=== PATIENT | female | born 1980 | race African-American/Black ===

== ENCOUNTER 2016-07-05 18:34 | Emergency (ER) | payer MEDICARE, MEDICAID ==
[2015-07-18 10:05] VITALS: BMI 44.2
[~2016-07-05 18:34] MED LIST: ATARAX 25 MG TA25 MG PO; CATAPRES0.1 MG PO; COZAAR50 MG PO; CYMBALTA60 MG PO; HUMALOG 30100 UNITS/ SC; KLONOPIN1 MG PO; LANTUS SOL100 UNIT/1 SQ; NEURONTIN 400400 MG PO; NORCO 5/325 TAB1 TA1 PO; PHENERGAN25 M1 PO; PRILOSEC20 MG PO; SEROQUEL200 MG PO; SOMA350 MG PO; TENORMIN50 MG PO; ZESTRIL40 MG PO; ZOCOR20 MG PO
== END 2016-07-05 19:20 | disposition left against medical advice (07) ==
LOC: D.ER 18:34
DX: I10 Essential (primary) hypertension (principal)

== ENCOUNTER 2016-07-22 11:13 | Emergency (ER) | payer MEDICARE, MEDICAID ==
[2015-07-18 10:05] VITALS: BMI 44.2
[2016-07-22 12:38] LABS: BASOPHILS 0.2 % (0.0-2.0); EOSINOPHILS 1.3 % (0-7); HEMATOCRIT 43.4 % (36.0-48.0); HEMOGLOBIN 14.4 g/dL (12-16); IMMATURE GRANULOCYTES 0.2 % (0-5); LYMPHOCYTES 34.4 % (15-50); MCH 29.3 pg (26.0-34.0); MCHC 33.2 g/dL (31.0-37.0); MCV 88.2 fL (80.0-100.0); MEAN PLATELET VOLUME 10.6 fL (7.4-10.4); MONOCYTES 9.4 % (2-11); NEUTROPHILS 54.5 % (40-80); PLATELET COUNT 311 10x3/uL (130-400); RBC 4.92 10x6/uL (4.00-5.40); WBC 9.3 10x3/uL (4.8-10.8)
[2016-07-22 12:51] LABS: KETONE - SERUM NEGATIVE (NEGATIVE)
[2016-07-22 12:56] LABS: ALBUMIN 3.6 g/dL (3.4-5.0); ALKALINE PHOSPHATASE 94 U/L (46-116); ALT (SGPT) 37 U/L (10-68); BILIRUBIN - TOTAL 0.33 mg/dL (0.2-1.3); CALC OSMOLALITY 285 mosm/kg (275-300); CALCIUM 8.7 mg/dL (8.5-10.1); CARBON DIOXIDE 27.6 mmol/L (21.0-32.0); CHLORIDE - SERUM 103 mmol/L (98-107); CREATININE - SERUM 0.7 mg/dL (0.6-1.3); MAGNESIUM - SERUM 1.2 mg/dL (1.8-2.4); POTASSIUM - SERUM 3.3 mmol/L (3.5-5.1); PROTEIN - SERUM 7.2 g/dL (6.4-8.2); SODIUM 141 mmol/L (136-145); UREA NITROGEN 6 mg/dL (7-18); eGFR NON AFRICAN AMERICAN > 90 mL/min (90-120)
[2016-07-22 13:10] LABS: GLUCOSE 217 mg/dL (74-106)
== END 2016-07-22 14:47 | disposition home or self-care (01) ==
LOC: D.ER 11:13
PROVIDERS: Emergency Medicine
DX: E11.65 Type 2 diabetes mellitus with hyperglycemia (principal); Z79.4 Long term (current) use of insulin; R11.10 Vomiting, unspecified; R10.9 Unspecified abdominal pain; E83.42 Hypomagnesemia; E87.6 Hypokalemia

== ENCOUNTER 2016-07-30 17:05 | Emergency (ER) | payer MEDICARE, MEDICAID ==
[2015-07-18 10:05] VITALS: BMI 44.2
[2016-07-30 18:22] LABS: BASOPHILS 0.2 % (0.0-2.0); HEMATOCRIT 43.4 % (36.0-48.0); HEMOGLOBIN 14.3 g/dL (12-16); IMMATURE GRANULOCYTES 0.3 % (0-5); LYMPHOCYTES 26.8 % (15-50); MCH 28.9 pg (26.0-34.0); MCHC 32.9 g/dL (31.0-37.0); MCV 87.9 fL (80.0-100.0); MEAN PLATELET VOLUME 11.1 fL (7.4-10.4); MONOCYTES 7.7 % (2-11); PLATELET COUNT 254 10x3/uL (130-400); RBC 4.94 10x6/uL (4.00-5.40); RDW 12.8 % (11.5-14.5); WBC 11.2 10x3/uL (4.8-10.8)
[2016-07-30 18:51] LABS: ALBUMIN 3.9 g/dL (3.4-5.0); ANION GAP 15.7 mmol/L (8-16); BILIRUBIN - TOTAL 0.34 mg/dL (0.2-1.3); CALCIUM 9.5 mg/dL (8.5-10.1); CARBON DIOXIDE 28.8 mmol/L (21.0-32.0); POTASSIUM - SERUM 3.5 mmol/L (3.5-5.1); PROTEIN - SERUM 7.9 g/dL (6.4-8.2)
[2016-07-30 19:01] LABS: APPEARANCE CLEAR (CLEAR); BILIRUBIN NEGATIVE (NEGATIVE); COLOR YELLOW (YELLOW); GLUCOSE 1000 mg/dL (NEGATIVE); KETONE NEGATIVE (NEGATIVE); LEUKOCYTE ESTERASE 1+ (NEGATIVE); NITRITE NEGATIVE (NEGATIVE); PROTEIN NEGATIVE (NEGATIVE); UROBILINOGEN NORMAL (NORMAL)
[2016-07-30 19:03] LABS: BACTERIA FEW /hpf (NONE SEEN); EPITHELIAL CELLS 0-5 /hpf (0-5); RED CELLS - URINE 0-5 /hpf (0-5)
== END 2016-07-30 23:40 | disposition home or self-care (01) ==
LOC: D.ER 17:05
PROVIDERS: Emergency Medicine
DX: E11.65 Type 2 diabetes mellitus with hyperglycemia (principal); Z79.4 Long term (current) use of insulin; R11.2 Nausea with vomiting, unspecified; N39.0 Urinary tract infection, site not specified; E87.6 Hypokalemia; E83.42 Hypomagnesemia

== ENCOUNTER 2016-08-16 16:14 | Emergency (ER) | payer MEDICARE, MEDICAID ==
[2015-07-18 10:05] VITALS: BMI 44.2
== END 2016-08-16 21:05 | disposition home or self-care (01) ==
LOC: D.ER 16:14
DX: Z76.0 Encounter for issue of repeat prescription (principal); E87.6 Hypokalemia; E83.42 Hypomagnesemia; E11.9 Type 2 diabetes mellitus without complications; Z79.4 Long term (current) use of insulin

== ENCOUNTER 2016-08-24 09:13 | Emergency (ER) | payer MEDICARE, MEDICAID ==
[2015-07-18 10:05] VITALS: BMI 44.2
== END 2016-08-24 09:25 | disposition left against medical advice (07) ==
LOC: D.ER 09:13
DX: F32.9 Major depressive disorder, single episode, unspecified (principal); E83.42 Hypomagnesemia; E11.9 Type 2 diabetes mellitus without complications; Z79.4 Long term (current) use of insulin

== ENCOUNTER 2016-08-27 09:03 | Observation (INO) | payer MEDICARE, MEDICAID ==
[~2016-08-27] VITALS: Ht 162.6 cm; Wt 98.6 kg
[2016-08-27 09:28] LABS: HCG URINE NEGATIVE (NEGATIVE)
[2016-08-27 09:35] LABS: BASOPHILS 0.1 % (0.0-2.0); EOSINOPHILS 1.2 % (0-7); HEMATOCRIT 47.2 % (36.0-48.0); HEMOGLOBIN 15.4 g/dL (12-16); IMMATURE GRANULOCYTES 0.2 % (0-5); LYMPHOCYTES 31.6 % (15-50); MCH 29.1 pg (26.0-34.0); MCHC 32.6 g/dL (31.0-37.0); MCV 89.2 fL (80.0-100.0); MEAN PLATELET VOLUME 11.3 fL (7.4-10.4); MONOCYTES 8.4 % (2-11); NEUTROPHILS 58.5 % (40-80); RBC 5.29 10x6/uL (4.00-5.40); RDW 12.6 % (11.5-14.5); WBC 8.4 10x3/uL (4.8-10.8)
[2016-08-27 09:36] LABS: PLATELET COUNT 315 10x3/uL (130-400)
[2016-08-27 09:42] LABS: APPEARANCE CLEAR (CLEAR); BILIRUBIN NEGATIVE (NEGATIVE); COLOR STRAW (YELLOW); GLUCOSE 1000 mg/dL (NEGATIVE); KETONE NEGATIVE (NEGATIVE); LEUKOCYTE ESTERASE NEGATIVE (NEGATIVE); NITRITE NEGATIVE (NEGATIVE); PROTEIN NEGATIVE (NEGATIVE); SPECIFIC GRAVITY 1.005 (1.005-1.020); UROBILINOGEN NORMAL (NORMAL)
[2016-08-27 09:48] LABS: BACTERIA FEW /hpf (NONE SEEN); EPITHELIAL CELLS 0-5 /hpf (0-5); RED CELLS - URINE 0-5 /hpf (0-5); WHITE CELLS - URINE 0-5 /hpf (0-5)
[2016-08-27 09:49] LABS: ALBUMIN 4.3 g/dL (3.4-5.0); BILIRUBIN - TOTAL 0.4 mg/dL (0.2-1.3); CALCIUM 9.5 mg/dL (8.5-10.1); CARBON DIOXIDE 22.7 mmol/L (21.0-32.0); CREATININE - SERUM 1.3 mg/dL (0.6-1.3); POTASSIUM - SERUM 3.7 mmol/L (3.5-5.1)
--- NOTE | 2016-08-27 13:00 | NUR ---
PATIENT RECEIVED TO FLOOR FROM ER. ALERT IN BED. NO SIGNS OF DISTRESS NOTED. ORIENTED TO ROOM. SIDE RAILS UP X2. BED IN LOW POSITION. CALL LIGHT IN REACH. DENIES NEEDS.
[2016-08-27] MEDS ORDERED: HYDROCODONE-APA1 TAB PO (13:03)
[2016-08-27] MEDS ORDERED: LANTUS SOL100 UNIT/1 SC (13:04)
--- NOTE | 2016-08-27 13:32 | NUR ---
ACCU CHECK 499. INSULIN PER SLIDING SCALE. IVF INITIATED PER ORDERS. DENIES NEEDS. SIDE RAILS UP X2. BED IN LOW POSITION. CALL LIGHT IN REACH.
--- NOTE | 2016-08-27 14:04 | NUR ---
SCHEDULED MEDICATION ADMINISTERED WELL PRN NORCO FOR PAIN 10/10 AND ZOFRAN FOR NAUSEA. NO FURTHER NEEDS VOICED. SIDE RAILS UP X2. BED IN LOW POSITION. CALL LIGHT IN REACH.
[2016-08-27 15:22] VITALS: BP 138/89; Ht 162.6 cm; Wt 98.6 kg
[2016-08-27 15:57] VITALS: BP 142/88
--- NOTE | 2016-08-27 16:50 | NUR ---
ACCU CHECK 331. INSULIN PER SLIDING SCALE. DENIES FURTHER NEEDS. SIDE RAILS UP X2. BED IN LOW POSITION. CALL LIGHT IN REACH.
--- NOTE | 2016-08-27 18:40 | NUR ---
PATIENT ALERT IN BED. TELEMETRY PLACED ON PATIENT PER ORDERS. ARRT TECHNOLOGIST REPORTS [address] SCDS ON PATIENT ORDERED, BUT SCD MACHINE THAT IS ATTACHED TO BED DOES NOT WORK. WILL NOTIFY VESSEL CREW MEMBER AND REQUEST NEW MACHINE. NORCO ADMINISTERED PER PRN ORDER FOR GENERALIZED PAIN 03/10. NO FURTHER NEEDS VOICED. SIDE RAILS UP X2. BED IN LOW POSITION. CALL LIGHT IN REACH.
[2016-08-27 19:00] VITALS: BP 140/93
[2016-08-28 01:00] VITALS: BP 114/76
[2016-08-28 04:00] VITALS: BP 154/84
--- NOTE | 2016-08-28 05:46 | NUR ---
PATIENT RESTING IN BED ON HER PHONE. PATIENT DENIES NEEDS AT THIS TIME. BED IN LOWEST POSITION AND CALL LIGHT WITHIN REACH.
[2016-08-28 05:53] LABS: BASOPHILS 0.2 % (0.0-2.0); EOSINOPHILS 2.5 % (0-7); HEMATOCRIT 43.3 % (36.0-48.0); HEMOGLOBIN 13.9 g/dL (12-16); IMMATURE GRANULOCYTES 0.4 % (0-5); LYMPHOCYTES 36.5 % (15-50); MCH 28.7 pg (26.0-34.0); MCHC 32.1 g/dL (31.0-37.0); MCV 89.3 fL (80.0-100.0); MEAN PLATELET VOLUME 10.9 fL (7.4-10.4); MONOCYTES 10.8 % (2-11); NEUTROPHILS 49.6 % (40-80); PLATELET COUNT 261 10x3/uL (130-400); RBC 4.85 10x6/uL (4.00-5.40); RDW 12.5 % (11.5-14.5); WBC 8.1 10x3/uL (4.8-10.8)
[2016-08-28 06:30] LABS: CALCIUM 8.4 mg/dL (8.5-10.1); CHLORIDE - SERUM 102 mmol/L (98-107); POTASSIUM - SERUM 3.7 mmol/L (3.5-5.1); SODIUM 141 mmol/L (136-145)
[2016-08-28 06:31] LABS: CALC OSMOLALITY 283 mosm/kg (275-300); CARBON DIOXIDE 28.7 mmol/L (21.0-32.0); CREATININE - SERUM 0.8 mg/dL (0.6-1.3); GLUCOSE 177 mg/dL (74-106); UREA NITROGEN 11 mg/dL (7-18); eGFR NON AFRICAN AMERICAN 85 mL/min (90-120)
--- NOTE | 2016-08-28 07:15 | NUR ---
PATEINT RECEIVED ALERT IN HIGH MCDONALD POSITION WATCHING TV. RESPIRATIONS EVEN AND UNLABORED. SIDE RAILS UP X2. BED IN LOW POSITION. CALL LIGHT IN REACH.
--- NOTE | 2016-08-28 08:02 | NUR ---
PATIENT IN HIGH MCDONALD POSITION. NO SIGNS OF DISTRESS NOTED. SCHEDULED MEDICATION ADMINISTERED. PATIENT CHECKED GLUCOSE ON PERSONAL GLUCOMETER, READING WAS 78. PROVIDED WITH JUICE AND CELE CRACKERS. DENIES FURTHER NEEDS. CALL LIGHT IN REACH.
[2016-08-28 08:13] VITALS: BP 129/75
[2016-08-28] MEDS ORDERED: KLONOPIN1 MG PO (10:57)
[2016-08-28 11:32] VITALS: BP 149/91
--- NOTE | 2016-08-28 11:34 | NUR ---
ACCU CHECK 193. PATIENT NOT WANTING INSULIN AT THIS TIME BECAUSE SHE IS AFRAID IT WILL DROP HER TOO LOW.
--- NOTE | 2016-08-28 12:00 | NUR ---
IV TO RIGHT FOREARM D/C WITH CATH TIP INTACT. SITE COVERED WITH GAUZE AND BANDAID.
--- NOTE | 2016-08-28 12:34 | NUR ---
Patient Name: SUSY HANNON Admission Status: Elective Accout number: [id number] Admission Date: 08-27-2016 : 1980 Admission Diagnosis: Attending: GEMINI Current LOS: 1 Anticipated DC Date: Planned Disposition: Home Primary Insurance: [employer] ADV Discharge Planning Comments: CM MET WITH PATIENT REGARDING D/C NEEDS AND PLANS. PATIENT STATED SHE LIVES WITH HER DAUGHTER (13) AND THEY HAVE 1 STEP W/O RAILS TO ENTER HOME AND NO STAIRS INSIDE. PATIENT USES [facility] [address]. PATIENT HAS A WALKER, AND GLUCOMETER AT HOME. PATIENT STATED SHE CHECKS HER SUGAR AT LEAST 6 X DAY. PATIENT HAS A FRIEND (LAVELL FLORES) THAT HELPS HER AT HOME. PATIENT STATED SHE IS GOING TO FIND A PCP WHEN DISCHARGED. PATIENT IS DISCHARGING TODAY AND A FRIEND OR A FAMILY MEMBER WILL PICK HER UP AT DISCHARGE. [facility] IS DELIVERING A SHOWER CHAIR TO HER HOME TODAY AFTER DISCHARGE. PCP NONE [facility] [address]- [phone] LAVELL MARK (FRIEND AND CAREGIVER) [phone] Mixing Technician: Emmanuelle Lewis Is the patient Alert and Oriented? Yes 0 * How many steps to enter\exit or inside your home? 1 0 * PCP none 0 * Pharmacy [facility] [address] [facility] * Preadmission Environment Home with Family 0 * ADLs Independent 0 * Equipment Glucometer Walker 0 * List name and contact numbers for known caregivers / representatives who currently or will assist patient after discharge: LAVELL FLORES [phone] 0 * Community resources currently utilized Other 0 * Please name any agencies selected above. HAS A CAREGIVER (LAVELL) 0 * Additional services required to return to the preadmission environment? Yes 0 * Can the patient safely return to the preadmission environment? Yes 0 * Has this patient been hospitalized within the prior 30 days at any hospital? No 0 Grand Total: 0
--- NOTE | 2016-08-28 12:36 | NUR ---
D/C TEACHING PROVIDED TO PATIENT. QUESTIONS ANSWERED. STATES UNDERSTANDING. LANTUS PEN SENT HOME WITH PATIENT PER ORDERS.
--- NOTE | 2016-08-28 13:00 | NUR ---
PATIENT D/C HOME WITH FAMILY. TRANSFERRE DOWNSTAIRS VIA WHEELCHAIR
== END 2016-08-28 13:36 | disposition home or self-care (01) ==
LOC: D.ER 09:03 → D.MS 11:04 → OBSVTIME 13:00 → D.MS 08-28 13:36
PROVIDERS: Emergency Medicine; ADMIT Emergency Medicine
DX: E11.65 Type 2 diabetes mellitus with hyperglycemia (principal); F31.9 Bipolar disorder, unspecified; M79.9 Soft tissue disorder, unspecified; I10 Essential (primary) hypertension; R11.2 Nausea with vomiting, unspecified

== ENCOUNTER 2016-09-02 08:35 | Emergency (ER) | payer MEDICARE, MEDICAID ==
[2016-08-27 15:22] VITALS: BMI 37.3
[~2016-09-02 08:35] MED LIST changes: +HYDROCODONE-APA1 TAB PO; +LANTUS SOL100 UNIT/1 SC
[2016-09-02 08:59] LABS: BASOPHILS 0.1 % (0.0-2.0); EOSINOPHILS 1.3 % (0-7); HEMATOCRIT 43.2 % (36.0-48.0); HEMOGLOBIN 13.9 g/dL (12-16); IMMATURE GRANULOCYTES 0.4 % (0-5); LYMPHOCYTES 20.8 % (15-50); MCHC 32.2 g/dL (31.0-37.0); MEAN PLATELET VOLUME 10.9 fL (7.4-10.4); NEUTROPHILS 66.4 % (40-80); PLATELET COUNT 280 10x3/uL (130-400); RDW 12.6 % (11.5-14.5); WBC 11.9 10x3/uL (4.8-10.8)
[2016-09-02 09:15] LABS: ALBUMIN 3.7 g/dL (3.4-5.0); ALKALINE PHOSPHATASE 143 U/L (46-116); ALT (SGPT) 32 U/L (10-68); BILIRUBIN - TOTAL 0.42 mg/dL (0.2-1.3); CALCIUM 8.4 mg/dL (8.5-10.1); CARBON DIOXIDE 25.9 mmol/L (21.0-32.0); CHLORIDE - SERUM 96 mmol/L (98-107); CREATININE - SERUM 0.8 mg/dL (0.6-1.3); POTASSIUM - SERUM 3.9 mmol/L (3.5-5.1); PROTEIN - SERUM 7.3 g/dL (6.4-8.2); SODIUM 133 mmol/L (136-145); UREA NITROGEN 8 mg/dL (7-18); eGFR NON AFRICAN AMERICAN 85 mL/min (90-120)
[2016-09-02 09:17] LABS: CALC OSMOLALITY 291 mosm/kg (275-300); GLUCOSE 594 mg/dL (74-106)
[2016-09-02 09:21] LABS: KETONE - SERUM NEGATIVE (NEGATIVE)
[2016-09-02 09:24] LABS: MAGNESIUM - SERUM 1.5 mg/dL (1.8-2.4)
== END 2016-09-02 14:26 | disposition home or self-care (01) ==
LOC: D.ER 08:35
PROVIDERS: Emergency Medicine
DX: R11.10 Vomiting, unspecified (principal); R19.7 Diarrhea, unspecified; R10.9 Unspecified abdominal pain; G62.9 Polyneuropathy, unspecified; E11.9 Type 2 diabetes mellitus without complications; Z79.4 Long term (current) use of insulin

== ENCOUNTER 2016-09-07 08:45 | Emergency (ER) | payer MEDICARE, MEDICAID ==
[2016-08-27 15:22] VITALS: BMI 37.3
[2016-09-07 09:50] LABS: BASOPHILS 0.1 % (0.0-2.0); HEMATOCRIT 43.9 % (36.0-48.0); HEMOGLOBIN 14.5 g/dL (12-16); IMMATURE GRANULOCYTES 0.3 % (0-5); LYMPHOCYTES 29.3 % (15-50); MCH 28.5 pg (26.0-34.0); MCV 86.4 fL (80.0-100.0); MEAN PLATELET VOLUME 10.8 fL (7.4-10.4); MONOCYTES 9.7 % (2-11); NEUTROPHILS 58.6 % (40-80); RBC 5.08 10x6/uL (4.00-5.40); RDW 12.8 % (11.5-14.5); WBC 8.8 10x3/uL (4.8-10.8)
[2016-09-07 09:51] LABS: PLATELET COUNT 383 10x3/uL (130-400)
[2016-09-07 10:09] LABS: ALBUMIN 3.6 g/dL (3.4-5.0); ALKALINE PHOSPHATASE 122 U/L (46-116); ALT (SGPT) 22 U/L (10-68); BILIRUBIN - TOTAL 0.36 mg/dL (0.2-1.3); CALC OSMOLALITY 290 mosm/kg (275-300); CALCIUM 9.1 mg/dL (8.5-10.1); CARBON DIOXIDE 23.7 mmol/L (21.0-32.0); CHLORIDE - SERUM 100 mmol/L (98-107); CREATININE - SERUM 0.8 mg/dL (0.6-1.3); POTASSIUM - SERUM 3.3 mmol/L (3.5-5.1); PROTEIN - SERUM 7.5 g/dL (6.4-8.2); SODIUM 135 mmol/L (136-145); UREA NITROGEN 9 mg/dL (7-18); eGFR NON AFRICAN AMERICAN 85 mL/min (90-120)
[2016-09-07 10:13] LABS: GLUCOSE 498 mg/dL (74-106)
[2016-09-07 13:30] LABS: HCG URINE NEGATIVE (NEGATIVE)
[2016-09-07 13:35] LABS: APPEARANCE CLEAR (CLEAR); BACTERIA FEW /hpf (NONE SEEN); BILIRUBIN NEGATIVE (NEGATIVE); COLOR YELLOW (YELLOW); EPITHELIAL CELLS 0-5 /hpf (0-5); GLUCOSE 1000 mg/dL (NEGATIVE); KETONE NEGATIVE (NEGATIVE); LEUKOCYTE ESTERASE TRACE (NEGATIVE); NITRITE NEGATIVE (NEGATIVE); PROTEIN NEGATIVE (NEGATIVE); RED CELLS - URINE OCC /hpf (0-5); UROBILINOGEN NORMAL (NORMAL); WHITE CELLS - URINE 0-5 /hpf (0-5)
[2016-09-07 13:43] LABS: KETONE - SERUM SMALL mg/dL (NEGATIVE)
[2016-09-07 13:45] LABS: LIPASE 183 U/L (73-393)
== END 2016-09-07 14:33 | disposition home or self-care (01) ==
LOC: D.ER 08:45
PROVIDERS: Emergency Medicine
DX: E11.65 Type 2 diabetes mellitus with hyperglycemia (principal); Z79.4 Long term (current) use of insulin; R11.10 Vomiting, unspecified; Z91.14 Patient's other noncompliance with medication regimen

== ENCOUNTER 2016-09-15 00:08 | Emergency (ER) | payer MEDICARE, MEDICAID ==
[2016-08-27 15:22] VITALS: BMI 37.3
[2016-09-15 00:54] LABS: APPEARANCE CLEAR (CLEAR); BILIRUBIN NEGATIVE (NEGATIVE); COLOR YELLOW (YELLOW); GLUCOSE NEGATIVE (NEGATIVE); KETONE NEGATIVE (NEGATIVE); LEUKOCYTE ESTERASE NEGATIVE (NEGATIVE); NITRITE NEGATIVE (NEGATIVE); PROTEIN NEGATIVE (NEGATIVE); SPECIFIC GRAVITY 1.015 (1.005-1.020); UROBILINOGEN NORMAL (NORMAL)
[2016-09-15 01:10] LABS: HCG URINE NEGATIVE (NEGATIVE)
[2016-09-15 01:31] LABS: BASOPHILS 0.1 % (0.0-2.0); EOSINOPHILS 1.9 % (0-7); HEMOGLOBIN 13.6 g/dL (12-16); IMMATURE GRANULOCYTES 0.3 % (0-5); LYMPHOCYTES 27.9 % (15-50); MCH 28.3 pg (26.0-34.0); MCHC 32.4 g/dL (31.0-37.0); MCV 87.3 fL (80.0-100.0); MEAN PLATELET VOLUME 10.3 fL (7.4-10.4); MONOCYTES 9.8 % (2-11); PLATELET COUNT 399 10x3/uL (130-400); RBC 4.81 10x6/uL (4.00-5.40); RDW 12.7 % (11.5-14.5)
[2016-09-15 01:51] LABS: ALBUMIN 3.5 g/dL (3.4-5.0); ALKALINE PHOSPHATASE 106 U/L (46-116); ALT (SGPT) 28 U/L (10-68); AMYLASE - SERUM 93 U/L (25-115); BILIRUBIN - TOTAL 0.53 mg/dL (0.2-1.3); CALC OSMOLALITY 282 mosm/kg (275-300); CALCIUM 8.1 mg/dL (8.5-10.1); CARBON DIOXIDE 28.4 mmol/L (21.0-32.0); CHLORIDE - SERUM 106 mmol/L (98-107); CREATININE - SERUM 0.6 mg/dL (0.6-1.3); GLUCOSE 155 mg/dL (74-106); LIPASE 120 U/L (73-393); POTASSIUM - SERUM 3.3 mmol/L (3.5-5.1); PROTEIN - SERUM 7.1 g/dL (6.4-8.2); SODIUM 142 mmol/L (136-145); UREA NITROGEN 4 mg/dL (7-18); eGFR NON AFRICAN AMERICAN > 90 mL/min (90-120)
== END 2016-09-15 04:28 | disposition home or self-care (01) ==
LOC: D.ER 00:08
PROVIDERS: Surgery
DX: K52.9 Noninfective gastroenteritis and colitis, unspecified (principal); K62.89 Other specified diseases of anus and rectum; E11.9 Type 2 diabetes mellitus without complications; Z79.4 Long term (current) use of insulin

== ENCOUNTER 2016-09-15 22:40 | Emergency (ER) | payer MEDICARE, MEDICAID ==
[2016-08-27 15:22] VITALS: BMI 37.3
[2016-09-16 00:54] LABS: BASOPHILS 0.1 % (0.0-2.0); EOSINOPHILS 1.7 % (0-7); HEMATOCRIT 44.2 % (36.0-48.0); HEMOGLOBIN 14.2 g/dL (12-16); IMMATURE GRANULOCYTES 0.4 % (0-5); LYMPHOCYTES 27.8 % (15-50); MCH 28.6 pg (26.0-34.0); MCHC 32.1 g/dL (31.0-37.0); MCV 88.9 fL (80.0-100.0); MEAN PLATELET VOLUME 10.2 fL (7.4-10.4); MONOCYTES 11.3 % (2-11); NEUTROPHILS 58.7 % (40-80); PLATELET COUNT 407 10x3/uL (130-400); RBC 4.97 10x6/uL (4.00-5.40); RDW 12.8 % (11.5-14.5)
[2016-09-16 01:10] LABS: ALBUMIN 3.5 g/dL (3.4-5.0); ALKALINE PHOSPHATASE 106 U/L (46-116); ALT (SGPT) 29 U/L (10-68); BILIRUBIN - TOTAL 0.53 mg/dL (0.2-1.3); CALCIUM 8.3 mg/dL (8.5-10.1); CARBON DIOXIDE 30.4 mmol/L (21.0-32.0); CHLORIDE - SERUM 107 mmol/L (98-107); CREATININE - SERUM 0.6 mg/dL (0.6-1.3); POTASSIUM - SERUM 3.1 mmol/L (3.5-5.1); PROTEIN - SERUM 7.2 g/dL (6.4-8.2); SODIUM 145 mmol/L (136-145); eGFR NON AFRICAN AMERICAN > 90 mL/min (90-120)
[2016-09-16 01:19] LABS: CALC OSMOLALITY 283 mosm/kg (275-300); GLUCOSE 87 mg/dL (74-106); UREA NITROGEN 2 mg/dL (7-18)
== END 2016-09-16 05:45 | disposition home or self-care (01) ==
LOC: D.ER 22:40
PROVIDERS: Surgery
DX: R10.9 Unspecified abdominal pain (principal); K52.9 Noninfective gastroenteritis and colitis, unspecified; K62.89 Other specified diseases of anus and rectum; E11.65 Type 2 diabetes mellitus with hyperglycemia; Z79.4 Long term (current) use of insulin

== ENCOUNTER 2016-09-20 17:13 | Emergency (ER) | payer MEDICARE, MEDICAID ==
[2016-08-27 15:22] VITALS: BMI 37.3
[2016-09-20 17:57] LABS: BASOPHILS 0.5 % (0.0-2.0); EOSINOPHILS 2.1 % (0-7); HEMATOCRIT 38.9 % (36.0-48.0); HEMOGLOBIN 12.2 g/dL (12-16); IMMATURE GRANULOCYTES 0.5 % (0-5); LYMPHOCYTES 29.2 % (15-50); MCH 28.1 pg (26.0-34.0); MCHC 31.4 g/dL (31.0-37.0); MCV 89.6 fL (80.0-100.0); MEAN PLATELET VOLUME 10.4 fL (7.4-10.4); MONOCYTES 9.9 % (2-11); NEUTROPHILS 57.8 % (40-80); PLATELET COUNT 345 10x3/uL (130-400); RBC 4.34 10x6/uL (4.00-5.40); RDW 12.6 % (11.5-14.5); WBC 10.9 10x3/uL (4.8-10.8)
[2016-09-20 18:21] LABS: ALBUMIN 3.5 g/dL (3.4-5.0); ALKALINE PHOSPHATASE 109 U/L (46-116); ALT (SGPT) 27 U/L (10-68); BILIRUBIN - TOTAL 0.33 mg/dL (0.2-1.3); CALCIUM 8.4 mg/dL (8.5-10.1); CARBON DIOXIDE 29.6 mmol/L (21.0-32.0); CHLORIDE - SERUM 100 mmol/L (98-107); CREATININE - SERUM 0.8 mg/dL (0.6-1.3); POTASSIUM - SERUM 3.6 mmol/L (3.5-5.1); PROTEIN - SERUM 6.3 g/dL (6.4-8.2); SODIUM 138 mmol/L (136-145); UREA NITROGEN 5 mg/dL (7-18); eGFR NON AFRICAN AMERICAN 85 mL/min (90-120)
[2016-09-20 18:25] LABS: CALC OSMOLALITY 297 mosm/kg (275-300); GLUCOSE 544 mg/dL (74-106)
[2016-09-20 19:57] LABS: KETONE - SERUM NEGATIVE (NEGATIVE)
[2016-09-20 20:06] LABS: HEMOGLOBIN A1C 10.4 % (4.8-6.0)
[2016-09-20 20:17] LABS: AMYLASE - SERUM 85 U/L (25-115); LIPASE 133 U/L (73-393); PRO BNP 480 pg/mL (0-125); THYROID STIMULATING HORMONE 3.37 uIU/mL (0.36-3.74)
[2016-09-20 20:20] LABS: UDS - AMPHET NEGATIVE QUAL (NEGATIVE); UDS - BARB NEGATIVE QUAL (NEGATIVE); UDS - BENZO NEGATIVE QUAL (NEGATIVE); UDS - COCAINE NEGATIVE QUAL (NEGATIVE); UDS - METH NEGATIVE QUAL (NEGATIVE); UDS - OPIATE NEGATIVE QUAL (NEGATIVE); UDS - PCP NEGATIVE QUAL (NEGATIVE); UDS - THC NEGATIVE QUAL (NEGATIVE)
[2016-09-20 20:57] LABS: APPEARANCE HAZY (CLEAR); BACTERIA FEW /hpf (NONE SEEN); BILIRUBIN NEGATIVE (NEGATIVE); COLOR YELLOW (YELLOW); EPITHELIAL CELLS 0-5 /hpf (0-5); GLUCOSE 1000 mg/dL (NEGATIVE); KETONE NEGATIVE (NEGATIVE); LEUKOCYTE ESTERASE TRACE (NEGATIVE); NITRITE NEGATIVE (NEGATIVE); PROTEIN NEGATIVE (NEGATIVE); UROBILINOGEN NORMAL (NORMAL); WHITE CELLS - URINE 0-5 /hpf (0-5)
== END 2016-09-20 21:37 | disposition home or self-care (01) ==
LOC: D.ER 17:13
PROVIDERS: Emergency Medicine; Family Medicine
DX: R73.9 Hyperglycemia, unspecified (principal)

== ENCOUNTER 2016-10-21 11:20 | Emergency (ER) | payer MEDICARE, MEDICAID ==
[2016-08-27 15:22] VITALS: BMI 37.3
== END 2016-10-21 12:20 | disposition home or self-care (01) ==
LOC: D.ER 11:20
DX: F41.9 Anxiety disorder, unspecified (principal); F41.0 Panic disorder [episodic paroxysmal anxiety]; G62.9 Polyneuropathy, unspecified; E11.9 Type 2 diabetes mellitus without complications; I10 Essential (primary) hypertension

== ENCOUNTER 2016-12-16 19:23 | Emergency (ER) | payer MEDICARE, MEDICAID ==
[2016-08-27 15:22] VITALS: BMI 37.3
[2016-12-16 20:27] LABS: BASOPHILS 0.2 % (0-2); EOSINOPHILS 0.8 % (0-7); HEMATOCRIT 45.1 % (36.0-48.0); HEMOGLOBIN 14.8 g/dL (12-16); IMMATURE GRANULOCYTES 0.5 % (0-5); LYMPHOCYTES 26.7 % (15-50); MCH 28.9 pg (26.0-34.0); MCHC 32.8 g/dL (31.0-37.0); MCV 88.1 fL (80.0-100.0); MEAN PLATELET VOLUME 10.6 fL (7.4-10.4); NEUTROPHILS 59.8 % (40-80); PLATELET COUNT 394 10x3/uL (130-400); RBC 5.12 10x6/uL (4.00-5.40); RDW 12.8 % (11.5-14.5)
[2016-12-16 20:42] LABS: ALBUMIN 4.1 g/dL (3.4-5.0); ALKALINE PHOSPHATASE 133 U/L (46-116); ALT (SGPT) 23 U/L (10-68); CALC OSMOLALITY 294 mosm/kg (275-300); CALCIUM 9.5 mg/dL (8.5-10.1); CARBON DIOXIDE 25.5 mmol/L (21.0-32.0); CHLORIDE - SERUM 101 mmol/L (98-107); POTASSIUM - SERUM 3.5 mmol/L (3.5-5.1); PROTEIN - SERUM 7.8 g/dL (6.4-8.2); SODIUM 138 mmol/L (136-145); UREA NITROGEN 12 mg/dL (7-18); eGFR NON AFRICAN AMERICAN 66 mL/min (90-120)
[2016-12-16 20:46] LABS: GLUCOSE 443 mg/dL (74-106); KETONE - SERUM NEGATIVE (NEGATIVE)
[2016-12-16 21:37] LABS: APPEARANCE CLEAR (CLEAR); BILIRUBIN NEGATIVE (NEGATIVE); COLOR YELLOW (YELLOW); GLUCOSE 1000 mg/dL (NEGATIVE); KETONE NEGATIVE (NEGATIVE); LEUKOCYTE ESTERASE NEGATIVE (NEGATIVE); NITRITE NEGATIVE (NEGATIVE); PROTEIN NEGATIVE (NEGATIVE); SPECIFIC GRAVITY 1.015 (1.005-1.020); UROBILINOGEN NORMAL (NORMAL)
[2016-12-16 21:45] LABS: UDS - AMPHET NEGATIVE QUAL (NEGATIVE); UDS - BARB NEGATIVE QUAL (NEGATIVE); UDS - BENZO NEGATIVE QUAL (NEGATIVE); UDS - COCAINE NEGATIVE QUAL (NEGATIVE); UDS - METH NEGATIVE QUAL (NEGATIVE); UDS - OPIATE NEGATIVE QUAL (NEGATIVE); UDS - PCP NEGATIVE QUAL (NEGATIVE); UDS - THC NEGATIVE QUAL (NEGATIVE)
== END 2016-12-16 22:25 | disposition home or self-care (01) ==
LOC: D.ER 19:23
PROVIDERS: Family Medicine; Nurse Practitioner Family
DX: E11.65 Type 2 diabetes mellitus with hyperglycemia (principal); Z91.14 Patient's other noncompliance with medication regimen; G62.9 Polyneuropathy, unspecified; I10 Essential (primary) hypertension

== ENCOUNTER 2016-12-25 17:22 | Emergency (ER) | payer MEDICARE, MEDICAID ==
[2016-08-27 15:22] VITALS: BMI 37.3
== END 2016-12-25 17:59 | disposition left against medical advice (07) ==
LOC: D.ER 17:22
DX: E11.65 Type 2 diabetes mellitus with hyperglycemia (principal)

== ENCOUNTER 2017-01-07 15:23 | Emergency (ER) | payer MEDICARE, MEDICAID ==
[2016-08-27 15:22] VITALS: BMI 37.3
[2017-01-07 16:51] LABS: BASOPHILS 0.2 % (0-2); EOSINOPHILS 1.9 % (0-7); HEMATOCRIT 41.1 % (36.0-48.0); HEMOGLOBIN 13.2 g/dL (12-16); IMMATURE GRANULOCYTES 0.6 % (0-5); LYMPHOCYTES 33.5 % (15-50); MCH 29.2 pg (26.0-34.0); MCHC 32.1 g/dL (31.0-37.0); MCV 90.9 fL (80.0-100.0); MEAN PLATELET VOLUME 10.6 fL (7.4-10.4); MONOCYTES 13.6 % (2-11); NEUTROPHILS 50.2 % (40-80); PLATELET COUNT 348 10x3/uL (130-400); RBC 4.52 10x6/uL (4.00-5.40); RDW 13.1 % (11.5-14.5); WBC 9.9 10x3/uL (4.8-10.8)
== END 2017-01-07 18:10 | disposition home or self-care (01) ==
LOC: D.ER 15:23
PROVIDERS: Emergency Medicine
DX: K59.00 Constipation, unspecified (principal); E11.9 Type 2 diabetes mellitus without complications; I10 Essential (primary) hypertension

== ENCOUNTER 2017-01-13 10:03 | Emergency (ER) | payer MEDICARE, MEDICAID ==
[2016-08-27 15:22] VITALS: BMI 37.3
== END 2017-01-13 13:02 | disposition home or self-care (01) ==
LOC: D.ER 10:03
DX: M25.50 Pain in unspecified joint (principal); G62.9 Polyneuropathy, unspecified; I10 Essential (primary) hypertension; E11.9 Type 2 diabetes mellitus without complications

== ENCOUNTER 2017-02-02 18:30 | Emergency (ER) | payer MEDICARE, MEDICAID ==
[2016-08-27 15:22] VITALS: BMI 37.3
== END 2017-02-02 19:59 | disposition home or self-care (01) ==
LOC: D.ER 18:30
DX: F19.239 Other psychoactive substance dependence with withdrawal, unspecified (principal); F41.9 Anxiety disorder, unspecified; R11.2 Nausea with vomiting, unspecified; R19.7 Diarrhea, unspecified; E11.9 Type 2 diabetes mellitus without complications; I10 Essential (primary) hypertension

== ENCOUNTER 2017-04-09 10:38 | Emergency (ER) | payer MEDICARE, MEDICAID ==
[2016-08-27 15:22] VITALS: BMI 37.3
[2017-04-09 11:23] LABS: APPEARANCE CLEAR (CLEAR); BILIRUBIN NEGATIVE (NEGATIVE); COLOR YELLOW (YELLOW); GLUCOSE 1000 mg/dL (NEGATIVE); KETONE NEGATIVE (NEGATIVE); NITRITE NEGATIVE (NEGATIVE); PROTEIN TRACE mg/dL (NEGATIVE); SPECIFIC GRAVITY 1.015 (1.005-1.020); UROBILINOGEN NORMAL (NORMAL)
[2017-04-09 11:24] LABS: BACTERIA FEW /hpf (NONE SEEN); RED CELLS - URINE 0-5 /hpf (0-5); YEAST <1+ /hpf (NONE SEEN)
[2017-04-09 11:38] LABS: KETONE - SERUM NEGATIVE (NEGATIVE)
[2017-04-09 11:51] LABS: ALBUMIN 3.8 g/dL (3.4-5.0); ALKALINE PHOSPHATASE 129 U/L (46-116); ALT (SGPT) 21 U/L (10-68); BILIRUBIN - TOTAL 0.51 mg/dL (0.2-1.3); CALC OSMOLALITY 286 mosm/kg (275-300); CALCIUM 9.5 mg/dL (8.5-10.1); CARBON DIOXIDE 27.6 mmol/L (21.0-32.0); CHLORIDE - SERUM 100 mmol/L (98-107); CREATININE - SERUM 0.8 mg/dL (0.6-1.3); POTASSIUM - SERUM 3.8 mmol/L (3.5-5.1); PROTEIN - SERUM 7.8 g/dL (6.4-8.2); SODIUM 138 mmol/L (136-145); UREA NITROGEN 13 mg/dL (7-18); eGFR NON AFRICAN AMERICAN 85 mL/min (90-120)
[2017-04-09 12:03] LABS: GLUCOSE 291 mg/dL (74-106)
== END 2017-04-09 15:40 | disposition home or self-care (01) ==
LOC: D.ER 10:38
PROVIDERS: Nurse Practitioner Family
DX: E11.65 Type 2 diabetes mellitus with hyperglycemia (principal); E66.9 Obesity, unspecified; Z91.19 Patient's noncompliance with other medical treatment and regimen; I10 Essential (primary) hypertension

== ENCOUNTER 2017-05-15 15:35 | Emergency (ER) | payer MEDICARE, MEDICAID ==
[2016-08-27 15:22] VITALS: BMI 37.3
== END 2017-05-15 16:43 | disposition home or self-care (01) ==
LOC: D.ER 15:35
DX: F41.9 Anxiety disorder, unspecified (principal); I10 Essential (primary) hypertension; E11.9 Type 2 diabetes mellitus without complications

== ENCOUNTER 2017-06-11 16:45 | Emergency (ER) | payer MEDICARE, MEDICAID ==
[2016-08-27 15:22] VITALS: BMI 37.3
[2017-06-11 17:15] LABS: BASOPHILS 0.2 % (0-2); EOSINOPHILS 1.3 % (0-7); HEMATOCRIT 41.8 % (36.0-48.0); HEMOGLOBIN 13.2 g/dL (12-16); IMMATURE GRANULOCYTES 0.3 % (0-5); LYMPHOCYTES 35.3 % (15-50); MCH 27.7 pg (26.0-34.0); MCHC 31.6 g/dL (31.0-37.0); MCV 87.6 fL (80.0-100.0); MONOCYTES 11.9 % (2-11); RBC 4.77 10x6/uL (4.00-5.40); RDW 12.6 % (11.5-14.5); WBC 6.2 10x3/uL (4.8-10.8)
[2017-06-11 17:16] LABS: PLATELET COUNT 275 10x3/uL (130-400)
[2017-06-11 17:23] LABS: KETONE - SERUM SMALL mg/dL (NEGATIVE)
[2017-06-11 17:33] LABS: ALBUMIN 3.3 g/dL (3.4-5.0); ALKALINE PHOSPHATASE 122 U/L (46-116); ALT (SGPT) 21 U/L (10-68); CARBON DIOXIDE 23.2 mmol/L (21.0-32.0); CHLORIDE - SERUM 92 mmol/L (98-107); CREATININE - SERUM 1.2 mg/dL (0.6-1.3); MAGNESIUM - SERUM 1.9 mg/dL (1.8-2.4); POTASSIUM - SERUM 4.1 mmol/L (3.5-5.1); PROTEIN - SERUM 6.6 g/dL (6.4-8.2); SODIUM 127 mmol/L (136-145); UREA NITROGEN 13 mg/dL (7-18); eGFR NON AFRICAN AMERICAN 53 mL/min (90-120)
[2017-06-11 17:50] LABS: CALC OSMOLALITY 297 mosm/kg (275-300); GLUCOSE 880 mg/dL (74-106)
== END 2017-06-11 18:22 | disposition left against medical advice (07) ==
LOC: D.ER 16:45
PROVIDERS: Emergency Medicine
DX: E11.65 Type 2 diabetes mellitus with hyperglycemia (principal); Z79.4 Long term (current) use of insulin

== ENCOUNTER 2017-06-12 18:55 | Emergency (ER) | payer MEDICARE, MEDICAID ==
[2016-08-27 15:22] VITALS: BMI 37.3
[2017-06-12 19:36] LABS: BASOPHILS 0.1 % (0-2); EOSINOPHILS 1.7 % (0-7); HEMATOCRIT 43.4 % (36.0-48.0); HEMOGLOBIN 14.3 g/dL (12-16); IMMATURE GRANULOCYTES 0.2 % (0-5); LYMPHOCYTES 37.5 % (15-50); MCH 28.3 pg (26.0-34.0); MCHC 32.9 g/dL (31.0-37.0); MCV 85.8 fL (80.0-100.0); MEAN PLATELET VOLUME 11.1 fL (7.4-10.4); MONOCYTES 11.7 % (2-11); NEUTROPHILS 48.8 % (40-80); PLATELET COUNT 315 10x3/uL (130-400); RBC 5.06 10x6/uL (4.00-5.40); RDW 12.5 % (11.5-14.5)
[2017-06-12 20:04] LABS: APPEARANCE CLEAR (CLEAR); COLOR YELLOW (YELLOW)
[2017-06-12 20:05] LABS: BILIRUBIN NEGATIVE (NEGATIVE); GLUCOSE 1000 mg/dL (NEGATIVE); KETONE NEGATIVE (NEGATIVE); NITRITE NEGATIVE (NEGATIVE); PROTEIN NEGATIVE (NEGATIVE); SPECIFIC GRAVITY 1.005 (1.005-1.020); UROBILINOGEN NORMAL (NORMAL)
[2017-06-12 20:06] LABS: ALBUMIN 3.7 g/dL (3.4-5.0); ANION GAP 13.7 mmol/L (8-16); BILIRUBIN - TOTAL 0.43 mg/dL (0.2-1.3); CALCIUM 9.3 mg/dL (8.5-10.1); CARBON DIOXIDE 26.6 mmol/L (21.0-32.0); CREATININE - SERUM 1.2 mg/dL (0.6-1.3); POTASSIUM - SERUM 4.3 mmol/L (3.5-5.1); PROTEIN - SERUM 7.3 g/dL (6.4-8.2)
== END 2017-06-13 01:29 | disposition home or self-care (01) ==
LOC: D.ER 18:55
PROVIDERS: Family Medicine
DX: E11.65 Type 2 diabetes mellitus with hyperglycemia (principal); Z79.4 Long term (current) use of insulin

== ENCOUNTER 2017-06-17 02:48 | Emergency (ER) | payer MEDICARE, MEDICAID ==
[2016-08-27 15:22] VITALS: BMI 37.3
[2017-06-17 03:45] LABS: APPEARANCE CLEAR (CLEAR); BILIRUBIN NEGATIVE (NEGATIVE); COLOR YELLOW (YELLOW); GLUCOSE 1000 mg/dL (NEGATIVE); KETONE NEGATIVE (NEGATIVE); NITRITE NEGATIVE (NEGATIVE); PROTEIN NEGATIVE (NEGATIVE); UROBILINOGEN NORMAL (NORMAL)
[2017-06-17 03:46] LABS: ALBUMIN 3.3 g/dL (3.4-5.0); ALKALINE PHOSPHATASE 150 U/L (46-116); ALT (SGPT) 66 U/L (10-68); CALCIUM 8.9 mg/dL (8.5-10.1); CARBON DIOXIDE 21.8 mmol/L (21.0-32.0); CHLORIDE - SERUM 95 mmol/L (98-107); CREATININE - SERUM 1.3 mg/dL (0.6-1.3); POTASSIUM - SERUM 4.2 mmol/L (3.5-5.1); PROTEIN - SERUM 6.7 g/dL (6.4-8.2); SODIUM 130 mmol/L (136-145); UREA NITROGEN 14 mg/dL (7-18); eGFR NON AFRICAN AMERICAN 48 mL/min (90-120)
[2017-06-17 03:47] LABS: CALC OSMOLALITY 305 mosm/kg (275-300); GLUCOSE 882 mg/dL (74-106); KETONE - SERUM NEGATIVE (NEGATIVE)
[2017-06-17 03:48] LABS: BASOPHILS 0.2 % (0-2); EOSINOPHILS 2.1 % (0-7); HEMATOCRIT 39.7 % (36.0-48.0); HEMOGLOBIN 12.4 g/dL (12-16); IMMATURE GRANULOCYTES 0.4 % (0-5); LYMPHOCYTES 35.6 % (15-50); MCH 27.5 pg (26.0-34.0); MCHC 31.2 g/dL (31.0-37.0); MEAN PLATELET VOLUME 10.8 fL (7.4-10.4); MONOCYTES 13.8 % (2-11); NEUTROPHILS 47.9 % (40-80); PLATELET COUNT 269 10x3/uL (130-400); RBC 4.51 10x6/uL (4.00-5.40); RDW 12.7 % (11.5-14.5); WBC 5.4 10x3/uL (4.8-10.8)
== END 2017-06-17 06:44 | disposition home or self-care (01) ==
LOC: D.ER 02:48
PROVIDERS: Family Medicine
DX: E11.65 Type 2 diabetes mellitus with hyperglycemia (principal); Z79.4 Long term (current) use of insulin; I10 Essential (primary) hypertension; K21.9 Gastro-esophageal reflux disease without esophagitis; F17.200 Nicotine dependence, unspecified, uncomplicated

== ENCOUNTER 2017-06-19 01:14 | Inpatient (IN) | payer MEDICARE, MEDICAID ==
[~2017-06-19] VITALS: Ht 162.6 cm; Wt 100.7 kg
[2017-06-19 02:09] LABS: BASOPHILS 0.3 % (0-2); EOSINOPHILS 2.4 % (0-7); HEMATOCRIT 41.6 % (36.0-48.0); IMMATURE GRANULOCYTES 0.3 % (0-5); LYMPHOCYTES 32.9 % (15-50); MCH 27.9 pg (26.0-34.0); MCHC 31.3 g/dL (31.0-37.0); MCV 89.3 fL (80.0-100.0); MEAN PLATELET VOLUME 10.9 fL (7.4-10.4); NEUTROPHILS 54.1 % (40-80); PLATELET COUNT 289 10x3/uL (130-400); RBC 4.66 10x6/uL (4.00-5.40); RDW 12.8 % (11.5-14.5); WBC 6.6 10x3/uL (4.8-10.8)
[2017-06-19 02:17] LABS: KETONE - SERUM SMALL mg/dL (NEGATIVE)
[2017-06-19 02:25] LABS: ALBUMIN 3.4 g/dL (3.4-5.0); ALKALINE PHOSPHATASE 156 U/L (46-116); ALT (SGPT) 58 U/L (10-68); CALCIUM 8.4 mg/dL (8.5-10.1); CARBON DIOXIDE 25.5 mmol/L (21.0-32.0); CHLORIDE - SERUM 94 mmol/L (98-107); CREATININE - SERUM 1.3 mg/dL (0.6-1.3); MAGNESIUM - SERUM 1.7 mg/dL (1.8-2.4); POTASSIUM - SERUM 4.3 mmol/L (3.5-5.1); PROTEIN - SERUM 6.7 g/dL (6.4-8.2); SODIUM 129 mmol/L (136-145); UREA NITROGEN 14 mg/dL (7-18); eGFR NON AFRICAN AMERICAN 48 mL/min (90-120)
[2017-06-19 02:34] LABS: CALC OSMOLALITY 299 mosm/kg (275-300); GLUCOSE 814 mg/dL (74-106)
[2017-06-19 02:40] LABS: APPEARANCE HAZY (CLEAR); BILIRUBIN NEGATIVE (NEGATIVE); COLOR STRAW (YELLOW); GLUCOSE 1000 mg/dL (NEGATIVE); KETONE NEGATIVE (NEGATIVE); NITRITE NEGATIVE (NEGATIVE); PROTEIN NEGATIVE (NEGATIVE); UROBILINOGEN NORMAL (NORMAL)
[2017-06-19 02:43] LABS: BACTERIA FEW /hpf (NONE SEEN); EPITHELIAL CELLS 0-5 /hpf (0-5); RED CELLS - URINE 0-5 /hpf (0-5); YEAST <1+ /hpf (NONE SEEN)
[2017-06-19 07:48] VITALS: BP 145/81; BMI 38.2
[2017-06-19 08:08] VITALS: BP 150/90
[2017-06-19] MEDS ORDERED: NORVASC10 MG PO (08:11)
[2017-06-19] MEDS ORDERED: RESTORIL15 MG PO (08:12)
[2017-06-19] MEDS ORDERED: TOPROL XL50 MG PO (08:12)
[2017-06-19 11:09] VITALS: Ht 162.6 cm; Wt 100.7 kg
--- NOTE | 2017-06-19 12:18 | NUR ---
REQUESTED AND GIVEN 0.5MG DILAUDID SLOW IVP FOR C/O LEG PAIN LEVEL 8. WILL MONITOR.
--- NOTE | 2017-06-19 12:51 | NUR ---
FSBS 430. KAREN MAYORGA NOTIFIED OF SAME. NEW ORDERS RECEIVED. GIVEN 28 UNITS REGULAR SUBQ PER SS. LUNCH SERVED IN ROOM.
[2017-06-19 13:01] LABS: HEMOGLOBIN A1C 11.7 % (4.8-6.0)
[2017-06-19 13:08] VITALS: BP 134/77
--- NOTE | 2017-06-19 13:15 | NUR ---
REPORTS GOOD RELIEF WITH USE OF DILAUDID.
--- NOTE | 2017-06-19 14:00 | NUR ---
RECHECK ON BS WAS 394. WILL NOTIFY
--- NOTE | 2017-06-19 14:10 | NUR ---
NUTRITION F/U PROVIDED DIABETIC DIET INFORMATION TO PT. DISCUSSED SOURCES OF CARBOHYDRATE, SERVING SIZES. ENCOURAGED CONSISTENT MEAL TIMES. REVIEWED LABEL READING. ALSO ENCOURAGED PT TO CHECK BLOOD SUGAR REGULARLY AND RECORD. RD FOLLOWING
[2017-06-19] MEDS ORDERED: NOVOLOG100 U/M1 SC (15:37)
[2017-06-19 16:02] VITALS: BP 148/80
--- NOTE | 2017-06-19 19:25 | NUR ---
RECIEVED SHIFT REPORT. PT IS LYING IN BED. ALERT AND ORIENTED AND ABLE TO VERBALIZE NEEDS. IV IS PATENT AND FLUIDS ARE RUNNING PER ORDER. PT IS AMBULATORY BUT WAS INSTRUCTED TO CALL FOR ANY ASSISTANCE NEEDED. PT STATES PAIN IS 8/10. NO NEEDS ARE VERBALIZED AT THIS TIME. WILL CONTINUE TO MONITOR. SIDE RAILS ARE UP X 2. BED IS IN LOWEST POSITION. CALL LIGHT IS WITHIN REACH.
[2017-06-19 20:00] VITALS: BP 152/85
--- NOTE | 2017-06-19 21:05 | NUR ---
SHIFT ASSESSMENT COMPLETED. NIGHT MEDS GIVEN WITH NO PROBLEMS. PT C/O PAIN 03/10. ADMINISTERED PRESCRIBED PRN DILAUDID PER ORDER. PT RECIEVED 24 UNITS INSULIN PER SLIDING SCALE FOR GKIF=500. SNACK PROVIDED. NO FURTHER NEEDS AT THIS TIME. WILL CONTINUE TO MONITOR. SIDE RAILS X 2. BED LOW. CALL LIGHT IN REACH.
[2017-06-20 04:00] VITALS: BP 138/92
[2017-06-20 06:26] LABS: ALBUMIN 3.2 g/dL (3.4-5.0); ALKALINE PHOSPHATASE 135 U/L (46-116); ALT (SGPT) 45 U/L (10-68); CALCIUM 8.6 mg/dL (8.5-10.1); CHLORIDE - SERUM 104 mmol/L (98-107); POTASSIUM - SERUM 4.5 mmol/L (3.5-5.1); PROTEIN - SERUM 6.1 g/dL (6.4-8.2); SODIUM 137 mmol/L (136-145); UREA NITROGEN 15 mg/dL (7-18)
[2017-06-20 06:28] LABS: BASOPHILS 0.2 % (0-2); EOSINOPHILS 3.2 % (0-7); HEMATOCRIT 39.8 % (36.0-48.0); HEMOGLOBIN 12.9 g/dL (12-16); IMMATURE GRANULOCYTES 0.4 % (0-5); LYMPHOCYTES 34.9 % (15-50); MCH 27.5 pg (26.0-34.0); MCHC 32.4 g/dL (31.0-37.0); MEAN PLATELET VOLUME 11.2 fL (7.4-10.4); MONOCYTES 9.9 % (2-11); NEUTROPHILS 51.4 % (40-80); PLATELET COUNT 292 10x3/uL (130-400); RBC 4.69 10x6/uL (4.00-5.40); RDW 12.6 % (11.5-14.5); WBC 8.1 10x3/uL (4.8-10.8)
[2017-06-20 06:30] LABS: CALC OSMOLALITY 283 mosm/kg (275-300); CREATININE - SERUM 0.8 mg/dL (0.6-1.3); GLUCOSE 253 mg/dL (74-106); eGFR NON AFRICAN AMERICAN 85 mL/min (90-120)
[2017-06-20 06:42] LABS: MCV 84.9 fL (80.0-100.0)
--- NOTE | 2017-06-20 08:26 | NUR ---
AWAKE AND ALERT. UP TO SHOWER WITH SET UP ASSIST. LUNGS ARE CLEAR BILATERALLY, NO COUGH NOTED. SKIN IS INTACT WITHOUT REDNESS. REPORTS RASH TO TEDDY AREA IMPROVING. IV TO RIGHT FOREARM IS PATENT WITHOUT REDNESS AT INSERTION SITE. REPORTS FEELING BETTER TODAY, SLEPT WELL. A/O X3. DENIES NEEDS. ADA BREAKFAST TRAY SERVED IN ROOM.
--- NOTE | 2017-06-20 10:30 | NUR ---
REQUESTED AND GIVEN 0.5 MG HYDROMOPHONE SLOW IVP FOR C/O GENERALIZED PAIN LEVEL 10. WILL MONITOR.
--- NOTE | 2017-06-20 12:00 | NUR ---
FSBS 345. GIVEN 20 UNITS REGULAR SUBQ PER SS. LUNCH SERVED IN ROOM.
[2017-06-20] MEDS ORDERED: MACROBID100 MG PO (12:26)
[2017-06-20] MEDS ORDERED: DIFLUCAN100 MG PO (12:26)
[2017-06-20] MEDS ORDERED: NYSTATIN15 GM TOPICAL (12:27)
[2017-06-20 13:19] VITALS: BP 124/57
--- NOTE | 2017-06-20 15:14 | NUR ---
DISCHARGED TO HOME AMBULATORY WITH SIGNIFICANT OTHER. DISCHARGE INSTRUCTIONS GIVEN BOTH VERBALLY AND WRITTEN. ALL QUESTIONS ANSWERED. PATIENT VERBALIZED UNDERSTANDING OF SAME. NEEDED PRESCRIPTIONS ESCRIBED TO PHARMACY OF CHOICE. IV TO RIGHT FOREARM D/C WHTI CATHETER INTACT. ALL BELONGINGS WITH PATIENT.
--- NOTE | 2017-06-21 15:45 | NUR ---
ANGY received call from Mendy with [facility] requesting CM fax Home Health orders and clinical information to [facility]. CM called [facility], spoke with Heavenly and Jeri. ANGY was told that [facility] could not admit the patient because they were out of network with her insurance company. CM called [facility] and spoke with Chao. Chao verified that he had received a call from the patient's insurance company and was expecting the referral. Chao stated they expect to admit the patient to home health on Saturday or Saturday. CM faxed Home Health orders and clinical record to [facility].
--- NOTE | 2017-06-29 11:18 | EC ---
PATIENT:SUSY HANNON DATE OF SERVICE: 06/19/17 SEX: F MEDICAL RECORD: [id number] DATE OF : [birth year] LOCATION:D.MS [facility] AGE OF PATIENT: 37 ADMISSION DATE: 06/19/17 REFERRING PHYSICIAN: INTERPRETING PHYSICIAN: DEA DIANE MD ECHOCARDIOGRAM REPORT ECHO CHARGES 4 ECHO COMPLETE CLINICAL DIAGNOSIS: EDEMA ECHOCARDIOGRAPHIC MEASUREMENTS (adult normal given) AC root (d.<3.7cm) 3.0 cm LV Septum d (<1.2 cm> 1.3 cm Valve Excursion 1.8 cm LV Septum (systole) 2.2 cm Left Atria (s.<4.0cm> 3.4 cm LVPW d(<1.2cm) 1.3 cm RV (d.<2.3cm) 2.5 cm LVPW (sytole) 2.1 cm LV diastole(<5.6CM) 4.5 cm MV E-F(>70mm/sec) cm LV systole 1.8 cm LVOT Diameter 1.7 cm MV exc.(>10mm) cm Est.ejection fraction (50-75%) % Pericardial Effusion N DOPPLER: LVIT cm/sec A 68.0 cm/sec E 78.0 cm/sec LA cm/sec RVSP 36.1 mmHg LVOT 133 cm/sec AOP1/2T m/s Asc. Ao 171 cm/sec RVOT 84.0 cm/sec RA cm/sec PA 107 cm/sec AV Gradient Peak 12.0 mmHg AV Mean 5.6 mmHg AV Area 1.8 cm MV Gradient Peak 3.5 mmHg MV Mean 1.4 mmHg MV Area cm COMMENTS: Event Planner: 1 MERY [place] Computer Support Analyst: 4 Dr. Diane TAPE# PACS DATE OF SERVICE: 06/19/2017 PROCEDURE: Transthoracic echocardiogram. FINDINGS: 1. Left ventricle has mild left ventricular hypertrophy with an ejection fraction of 60% to 65%. No regional wall motion abnormalities. 2. The left atrium is normal size, normal function. 3. Aortic valve is normal. 4. The mitral valve is normal. ECHOCARDIOGRAM REPORT [id number] SUSY HANNON 5. The tricuspid valve is normal. 6. The pericardium is normal. 7. Pulmonic valve is normal. 8. The right atrium and right ventricle are normal size and normal function. IMPRESSION: The patient has evidence of mild left ventricular hypertrophy, otherwise normal echocardiogram. TRANSINT:[id number] Voice Confirmation ID: [id number] DOCUMENT ID: [id number] 06/27/2017 Edited to correct date of service, dmm. DEA DIANE MD at 1118 CC: [id number] DICTATION DATE: 06/20/17 0752 SHOW HOST: 06/20/17 1012 DIS IN 06/20/17 [id number] [place] [address]
== END 2017-06-20 15:16 | DRG 638 ==
LOC: D.ER 01:14 → OBSVTIME 05:47 → D.MS 05:47
PROVIDERS: Emergency Medicine; Physician Assistant; ADMIT Emergency Medicine
DX: E11.65 Type 2 diabetes mellitus with hyperglycemia (principal); E87.1 Hypo-osmolality and hyponatremia; N39.0 Urinary tract infection, site not specified; E11.40 Type 2 diabetes mellitus with diabetic neuropathy, unspecified; E86.0 Dehydration; G89.29 Other chronic pain; M79.7 Fibromyalgia; F31.9 Bipolar disorder, unspecified

== ENCOUNTER 2017-06-21 18:24 | Emergency (ER) | payer MEDICARE, MEDICAID ==
[2017-06-19 11:09] VITALS: BMI 38.1
[~2017-06-21 18:24] MED LIST changes: +DIFLUCAN100 MG PO; +MACROBID100 MG PO; +NORVASC10 MG PO; +NOVOLOG100 U/M1 SC; +NYSTATIN15 GM TOPICAL; +RESTORIL15 MG PO; +TOPROL XL50 MG PO
[2017-06-21 19:12] LABS: BASOPHILS 0.2 % (0-2); EOSINOPHILS 1.7 % (0-7); HEMATOCRIT 42.7 % (36.0-48.0); HEMOGLOBIN 13.8 g/dL (12-16); IMMATURE GRANULOCYTES 0.6 % (0-5); LYMPHOCYTES 32.2 % (15-50); MCH 28.2 pg (26.0-34.0); MCHC 32.3 g/dL (31.0-37.0); MONOCYTES 10.6 % (2-11); NEUTROPHILS 54.7 % (40-80); PLATELET COUNT 309 10x3/uL (130-400); RBC 4.89 10x6/uL (4.00-5.40); RDW 13.1 % (11.5-14.5); WBC 8.1 10x3/uL (4.8-10.8)
[2017-06-21 19:28] LABS: MCV 87.3 fL (80.0-100.0)
[2017-06-21 19:29] LABS: ALBUMIN 3.7 g/dL (3.4-5.0); ANION GAP 15.8 mmol/L (8-16); BILIRUBIN - TOTAL 0.45 mg/dL (0.2-1.3); CALCIUM 9.3 mg/dL (8.5-10.1); CARBON DIOXIDE 23.8 mmol/L (21.0-32.0); POTASSIUM - SERUM 4.6 mmol/L (3.5-5.1); PROTEIN - SERUM 7.3 g/dL (6.4-8.2)
[2017-06-21 19:32] LABS: APPEARANCE CLEAR (CLEAR); BILIRUBIN NEGATIVE (NEGATIVE); COLOR YELLOW (YELLOW); GLUCOSE 1000 mg/dL (NEGATIVE); KETONE NEGATIVE (NEGATIVE); NITRITE NEGATIVE (NEGATIVE); PROTEIN NEGATIVE (NEGATIVE); UROBILINOGEN NORMAL (NORMAL)
[2017-06-21 19:40] LABS: KETONE - SERUM NEGATIVE (NEGATIVE)
[2017-06-21 19:41] LABS: CREATININE - SERUM 1.2 mg/dL (0.6-1.3)
[2017-06-21 19:44] LABS: HEMOGLOBIN A1C 11.3 % (4.8-6.0)
[2017-06-21 19:53] LABS: AMYLASE - SERUM 102 U/L (25-115); CREATINE KINASE 90 UL (21-215); LDH 229 U/L (81-234); LIPASE 175 U/L (73-393); MAGNESIUM - SERUM 1.8 mg/dL (1.8-2.4); PRO BNP 111 pg/mL (0-125); TROPONIN-I < 0.017 ng/mL (0.000-0.060)
[2017-06-21 20:12] LABS: UDS - AMPHET NEGATIVE QUAL (NEGATIVE); UDS - BARB NEGATIVE QUAL (NEGATIVE); UDS - BENZO NEGATIVE QUAL (NEGATIVE); UDS - COCAINE NEGATIVE QUAL (NEGATIVE); UDS - OPIATE POSITIVE QUAL (NEGATIVE); UDS - PCP NEGATIVE QUAL (NEGATIVE); UDS - THC NEGATIVE QUAL (NEGATIVE)
== END 2017-06-22 03:27 | disposition home or self-care (01) ==
LOC: D.ER 18:24
PROVIDERS: Family Medicine
DX: E11.65 Type 2 diabetes mellitus with hyperglycemia (principal); Z79.4 Long term (current) use of insulin; K21.9 Gastro-esophageal reflux disease without esophagitis; I10 Essential (primary) hypertension

== ENCOUNTER 2017-07-06 05:23 | Emergency (ER) | payer MEDICARE, MEDICAID ==
[2017-06-19 11:09] VITALS: BMI 38.1
[2017-07-06 06:26] LABS: BASOPHILS 0.1 % (0-2); EOSINOPHILS 0.9 % (0-7); HEMATOCRIT 42.8 % (36.0-48.0); HEMOGLOBIN 14.3 g/dL (12-16); IMMATURE GRANULOCYTES 0.2 % (0-5); LYMPHOCYTES 19.6 % (15-50); MCH 28.3 pg (26.0-34.0); MCHC 33.4 g/dL (31.0-37.0); MCV 84.6 fL (80.0-100.0); MEAN PLATELET VOLUME 10.7 fL (7.4-10.4); MONOCYTES 8.2 % (2-11); PLATELET COUNT 310 10x3/uL (130-400); RBC 5.06 10x6/uL (4.00-5.40); RDW 12.8 % (11.5-14.5); WBC 10.5 10x3/uL (4.8-10.8)
[2017-07-06 06:29] LABS: APPEARANCE CLEAR (CLEAR); BILIRUBIN NEGATIVE (NEGATIVE); COLOR STRAW (YELLOW); GLUCOSE 1000 mg/dL (NEGATIVE); KETONE NEGATIVE (NEGATIVE); NITRITE NEGATIVE (NEGATIVE); PROTEIN 1+ mg/dL (NEGATIVE); UROBILINOGEN NORMAL (NORMAL)
[2017-07-06 06:30] LABS: KETONE - SERUM NEGATIVE (NEGATIVE)
[2017-07-06 06:32] LABS: BACTERIA FEW /hpf (NONE SEEN); EPITHELIAL CELLS 0-5 /hpf (0-5); RED CELLS - URINE 0-5 /hpf (0-5); WHITE CELLS - URINE 0-5 /hpf (0-5)
[2017-07-06 06:39] LABS: ALBUMIN 3.7 g/dL (3.4-5.0); ALKALINE PHOSPHATASE 148 U/L (46-116); ALT (SGPT) 25 U/L (10-68); BILIRUBIN - TOTAL 0.29 mg/dL (0.2-1.3); CALC OSMOLALITY 294 mosm/kg (275-300); CALCIUM 9.4 mg/dL (8.5-10.1); CARBON DIOXIDE 27.2 mmol/L (21.0-32.0); CHLORIDE - SERUM 100 mmol/L (98-107); CREATININE - SERUM 1.1 mg/dL (0.6-1.3); PROTEIN - SERUM 7.3 g/dL (6.4-8.2); SODIUM 137 mmol/L (136-145); UREA NITROGEN 15 mg/dL (7-18); eGFR NON AFRICAN AMERICAN 59 mL/min (90-120)
[2017-07-06 06:42] LABS: GLUCOSE 467 mg/dL (74-106)
== END 2017-07-06 07:50 | disposition home or self-care (01) ==
LOC: D.ER 05:23
PROVIDERS: Family Medicine
DX: F41.9 Anxiety disorder, unspecified (principal); E11.65 Type 2 diabetes mellitus with hyperglycemia; Z79.4 Long term (current) use of insulin; K21.9 Gastro-esophageal reflux disease without esophagitis; I10 Essential (primary) hypertension

== ENCOUNTER 2017-07-18 14:49 | Emergency (ER) | payer MEDICARE, MEDICAID ==
[2017-06-19 11:09] VITALS: BMI 38.1
== END 2017-07-18 16:05 | disposition home or self-care (01) ==
LOC: D.ER 14:49
DX: J20.9 Acute bronchitis, unspecified (principal); J06.9 Acute upper respiratory infection, unspecified; E11.9 Type 2 diabetes mellitus without complications; Z79.4 Long term (current) use of insulin; I10 Essential (primary) hypertension; K21.9 Gastro-esophageal reflux disease without esophagitis

== ENCOUNTER → 2017-08-06 11:55 | Outpatient (CLI) | payer MEDICARE, MEDICAID ==
[2017-06-19 11:09] VITALS: BMI 38.1
== END | disposition home or self-care (01) ==
LOC: D.RAD 11:15
DX: K59.00 Constipation, unspecified (principal)

== ENCOUNTER 2017-09-16 20:10 | Emergency (ER) | payer MEDICARE, MEDICAID ==
[2017-06-19 11:09] VITALS: BMI 38.1
[2017-09-16 21:35] LABS: BASOPHILS 0.2 % (0-2); EOSINOPHILS 1.6 % (0-7); HEMOGLOBIN 13.1 g/dL (12-16); IMMATURE GRANULOCYTES 0.4 % (0-5); LYMPHOCYTES 25.9 % (15-50); MCH 27.6 pg (26.0-34.0); MCHC 31.2 g/dL (31.0-37.0); MCV 88.4 fL (80.0-100.0); MONOCYTES 10.6 % (2-11); NEUTROPHILS 61.3 % (40-80); PLATELET COUNT 287 10x3/uL (130-400); RBC 4.75 10x6/uL (4.00-5.40); RDW 13.5 % (11.5-14.5); WBC 8.1 10x3/uL (4.8-10.8)
[2017-09-16 21:43] LABS: INR 0.94 (0.85-1.17); PROTIME 12.2 SECONDS (11.6-15.0)
[2017-09-16 21:53] LABS: ALBUMIN 3.5 g/dL (3.4-5.0); ALKALINE PHOSPHATASE 154 U/L (46-116); ALT (SGPT) 23 U/L (10-68); BILIRUBIN - TOTAL 0.29 mg/dL (0.2-1.3); CALCIUM 8.8 mg/dL (8.5-10.1); CARBON DIOXIDE 23.9 mmol/L (21.0-32.0); CHLORIDE - SERUM 95 mmol/L (98-107); CREATININE - SERUM 1.3 mg/dL (0.6-1.3); LIPASE 213 U/L (73-393); MAGNESIUM - SERUM 1.8 mg/dL (1.8-2.4); POTASSIUM - SERUM 4.1 mmol/L (3.5-5.1); PROTEIN - SERUM 7.4 g/dL (6.4-8.2); SODIUM 131 mmol/L (136-145); UREA NITROGEN 18 mg/dL (7-18); eGFR NON AFRICAN AMERICAN 48 mL/min (90-120)
[2017-09-16 22:16] LABS: KETONE - SERUM NEGATIVE (NEGATIVE)
[2017-09-16 22:43] LABS: CALC OSMOLALITY 302 mosm/kg (275-300); GLUCOSE 789 mg/dL (74-106)
[2017-09-16 22:46] LABS: APPEARANCE CLEAR (CLEAR); BILIRUBIN NEGATIVE (NEGATIVE); COLOR STRAW (YELLOW); GLUCOSE 1000 mg/dL (NEGATIVE); KETONE NEGATIVE (NEGATIVE); NITRITE NEGATIVE (NEGATIVE); PROTEIN NEGATIVE (NEGATIVE); SPECIFIC GRAVITY 1.005 (1.005-1.020); UROBILINOGEN NORMAL (NORMAL)
[2017-09-16 22:48] LABS: BACTERIA MODERATE /hpf (NONE SEEN); RED CELLS - URINE OCC /hpf (0-5)
[2017-09-16 22:50] LABS: YEAST OCC /hpf (NONE SEEN)
[2017-09-16 22:52] LABS: UDS - AMPHET NEGATIVE QUAL (NEGATIVE); UDS - BARB NEGATIVE QUAL (NEGATIVE); UDS - BENZO NEGATIVE QUAL (NEGATIVE); UDS - COCAINE NEGATIVE QUAL (NEGATIVE); UDS - OPIATE NEGATIVE QUAL (NEGATIVE); UDS - PCP NEGATIVE QUAL (NEGATIVE); UDS - THC NEGATIVE QUAL (NEGATIVE)
[2017-09-16 23:10] LABS: PRO BNP 49 pg/mL (0-125)
[2017-12-06] MEDS ORDERED: COZAAR100 MG PO (15:48)
[2017-12-06] MEDS ORDERED: NEURONTIN600 MG PO (15:50)
[2017-12-06] MEDS ORDERED: BASAGLAR K100 UNIT/1 SC (15:50)
[2017-12-06] MEDS ORDERED: LIPITOR40 MG PO (15:52)
[2017-12-06] MEDS ORDERED: TOPROL XL25 MG PO (15:52)
== END 2017-09-17 06:48 | disposition home or self-care (01) ==
LOC: D.ER 20:10
PROVIDERS: Nurse Practitioner Family
DX: E11.65 Type 2 diabetes mellitus with hyperglycemia (principal); Z79.4 Long term (current) use of insulin; K21.9 Gastro-esophageal reflux disease without esophagitis; I10 Essential (primary) hypertension

== ENCOUNTER 2017-09-17 19:08 | Emergency (ER) | payer MEDICARE, MEDICAID ==
[2017-06-19 11:09] VITALS: BMI 38.1
[2017-09-17 21:37] LABS: APPEARANCE CLEAR (CLEAR); COLOR STRAW (YELLOW); SPECIFIC GRAVITY 1.005 (1.005-1.020)
[2017-09-17 21:38] LABS: BILIRUBIN NEGATIVE (NEGATIVE); GLUCOSE 1000 mg/dL (NEGATIVE); KETONE NEGATIVE (NEGATIVE); NITRITE NEGATIVE (NEGATIVE); PROTEIN NEGATIVE (NEGATIVE); UROBILINOGEN NORMAL (NORMAL)
[2017-09-17 21:39] LABS: RED CELLS - URINE 0-5 /hpf (0-5)
[2017-09-17 21:40] LABS: BACTERIA FEW /hpf (NONE SEEN); YEAST <1+ /hpf (NONE SEEN)
[2017-09-17 22:27] LABS: BASOPHILS 0.1 % (0-2); EOSINOPHILS 2.3 % (0-7); HEMATOCRIT 38.1 % (36.0-48.0); HEMOGLOBIN 12.2 g/dL (12-16); IMMATURE GRANULOCYTES 0.4 % (0-5); LYMPHOCYTES 37.3 % (15-50); MCH 27.9 pg (26.0-34.0); MEAN PLATELET VOLUME 10.6 fL (7.4-10.4); NEUTROPHILS 49.9 % (40-80); PLATELET COUNT 267 10x3/uL (130-400); RBC 4.38 10x6/uL (4.00-5.40); RDW 13.2 % (11.5-14.5); WBC 7.7 10x3/uL (4.8-10.8)
[2017-09-17 22:45] LABS: ALBUMIN 3.3 g/dL (3.4-5.0); ALKALINE PHOSPHATASE 156 U/L (46-116); ALT (SGPT) 21 U/L (10-68); BILIRUBIN - TOTAL 0.27 mg/dL (0.2-1.3); CALCIUM 8.8 mg/dL (8.5-10.1); CARBON DIOXIDE 24.2 mmol/L (21.0-32.0); CHLORIDE - SERUM 96 mmol/L (98-107); CREATININE - SERUM 1.3 mg/dL (0.6-1.3); PROTEIN - SERUM 6.8 g/dL (6.4-8.2); SODIUM 132 mmol/L (136-145); UREA NITROGEN 15 mg/dL (7-18); eGFR NON AFRICAN AMERICAN 48 mL/min (90-120)
[2017-09-17 22:49] LABS: CALC OSMOLALITY 294 mosm/kg (275-300)
[2017-09-17 22:51] LABS: GLUCOSE 616 mg/dL (74-106)
[2017-09-17 22:53] LABS: KETONE - SERUM NEGATIVE (NEGATIVE)
[2017-12-06] MEDS ORDERED: COZAAR100 MG PO (15:48)
[2017-12-06] MEDS ORDERED: NEURONTIN600 MG PO (15:50)
[2017-12-06] MEDS ORDERED: BASAGLAR K100 UNIT/1 SC (15:50)
[2017-12-06] MEDS ORDERED: TOPROL XL25 MG PO (15:52)
[2017-12-06] MEDS ORDERED: LIPITOR40 MG PO (15:52)
== END 2017-09-18 02:40 | disposition home or self-care (01) ==
LOC: D.ER 19:08
PROVIDERS: Family Medicine
DX: E86.0 Dehydration (principal); E11.65 Type 2 diabetes mellitus with hyperglycemia; Z79.4 Long term (current) use of insulin; B37.9 Candidiasis, unspecified; N39.0 Urinary tract infection, site not specified

== ENCOUNTER 2017-10-08 09:49 | Emergency (ER) | payer MEDICARE, MEDICAID ==
[2017-06-19 11:09] VITALS: BMI 38.1
[2017-10-08 10:41] LABS: APPEARANCE SLT CLOUDY (CLEAR); BILIRUBIN NEGATIVE (NEGATIVE); COLOR YELLOW (YELLOW); GLUCOSE NEGATIVE (NEGATIVE); KETONE NEGATIVE (NEGATIVE); NITRITE NEGATIVE (NEGATIVE); PROTEIN 2+ mg/dL (NEGATIVE); RED CELLS - URINE OCC /hpf (0-5); SPECIFIC GRAVITY 1.015 (1.005-1.020); UROBILINOGEN NORMAL (NORMAL); WHITE CELLS - URINE RARE /hpf (0-5)
[2017-10-08 10:42] LABS: BACTERIA MODERATE /hpf (NONE SEEN); EPITHELIAL CELLS 0-5 /hpf (0-5); MUCUS <1+ /lpf (NONE SEEN)
[2017-10-08 10:49] LABS: BASOPHILS 0.2 % (0-2); EOSINOPHILS 1.2 % (0-7); HEMATOCRIT 48.6 % (36.0-48.0); HEMOGLOBIN 15.9 g/dL (12-16); IMMATURE GRANULOCYTES 0.3 % (0-5); LYMPHOCYTES 33.2 % (15-50); MCH 28.4 pg (26.0-34.0); MCHC 32.7 g/dL (31.0-37.0); MCV 86.9 fL (80.0-100.0); MEAN PLATELET VOLUME 10.1 fL (7.4-10.4); NEUTROPHILS 55.1 % (40-80); RBC 5.59 10x6/uL (4.00-5.40); WBC 9.4 10x3/uL (4.8-10.8)
[2017-10-08 10:50] LABS: PLATELET COUNT 368 10x3/uL (130-400)
[2017-10-08 10:58] LABS: KETONE - SERUM NEGATIVE (NEGATIVE)
[2017-10-08 11:03] LABS: ALBUMIN 3.9 g/dL (3.4-5.0); ALKALINE PHOSPHATASE 205 U/L (46-116); ALT (SGPT) 78 U/L (10-68); BILIRUBIN - TOTAL 0.66 mg/dL (0.2-1.3); CALC OSMOLALITY 280 mosm/kg (275-300); CALCIUM 9.5 mg/dL (8.5-10.1); CARBON DIOXIDE 24.8 mmol/L (21.0-32.0); CHLORIDE - SERUM 101 mmol/L (98-107); CREATININE - SERUM 0.9 mg/dL (0.6-1.3); PROTEIN - SERUM 8.3 g/dL (6.4-8.2); SODIUM 139 mmol/L (136-145); UREA NITROGEN 8 mg/dL (7-18); eGFR NON AFRICAN AMERICAN 74 mL/min (90-120)
[2017-10-08 11:05] LABS: GLUCOSE 192 mg/dL (74-106)
[2017-12-06] MEDS ORDERED: COZAAR100 MG PO (15:48)
[2017-12-06] MEDS ORDERED: BASAGLAR K100 UNIT/1 SC (15:50)
[2017-12-06] MEDS ORDERED: NEURONTIN600 MG PO (15:50)
[2017-12-06] MEDS ORDERED: LIPITOR40 MG PO (15:52)
[2017-12-06] MEDS ORDERED: TOPROL XL25 MG PO (15:52)
== END 2017-10-08 13:45 | disposition home or self-care (01) ==
LOC: D.ER 09:49
PROVIDERS: Emergency Medicine
DX: R10.2 Pelvic and perineal pain (principal); R30.0 Dysuria; E11.9 Type 2 diabetes mellitus without complications; Z79.4 Long term (current) use of insulin; I10 Essential (primary) hypertension; K21.9 Gastro-esophageal reflux disease without esophagitis

== ENCOUNTER 2017-10-15 08:41 | Emergency (ER) | payer MEDICARE, MEDICAID ==
[2017-06-19 11:09] VITALS: BMI 38.1
[2017-10-15 09:23] LABS: HCG URINE NEGATIVE (NEGATIVE)
[2017-10-15 09:24] LABS: BASOPHILS 0.3 % (0-2); EOSINOPHILS 1.4 % (0-7); HEMATOCRIT 42.3 % (36.0-48.0); HEMOGLOBIN 13.7 g/dL (12-16); IMMATURE GRANULOCYTES 0.3 % (0-5); LYMPHOCYTES 35.9 % (15-50); MCH 28.2 pg (26.0-34.0); MCHC 32.4 g/dL (31.0-37.0); MCV 87.2 fL (80.0-100.0); MONOCYTES 11.1 % (2-11); RBC 4.85 10x6/uL (4.00-5.40); WBC 7.4 10x3/uL (4.8-10.8)
[2017-10-15 09:36] LABS: KETONE - SERUM NEGATIVE (NEGATIVE)
[2017-10-15 09:46] LABS: PLATELET COUNT 294 10x3/uL (130-400)
[2017-10-15 10:06] LABS: APPEARANCE HAZY (CLEAR); BILIRUBIN NEGATIVE (NEGATIVE); COLOR STRAW (YELLOW); GLUCOSE 1000 mg/dL (NEGATIVE); KETONE NEGATIVE (NEGATIVE); NITRITE NEGATIVE (NEGATIVE); PROTEIN TRACE mg/dL (NEGATIVE); UROBILINOGEN NORMAL (NORMAL)
[2017-10-15 10:08] LABS: BACTERIA FEW /hpf (NONE SEEN); MUCUS <1+ /lpf (NONE SEEN); RED CELLS - URINE 0-5 /hpf (0-5); WHITE CELLS - URINE OCC /hpf (0-5); YEAST <1+ /hpf (NONE SEEN)
[2017-10-15 10:35] LABS: ALBUMIN 3.7 g/dL (3.4-5.0); ALKALINE PHOSPHATASE 165 U/L (46-116); ALT (SGPT) 39 U/L (10-68); AMYLASE - SERUM 97 U/L (25-115); BILIRUBIN - TOTAL 0.27 mg/dL (0.2-1.3); CALC OSMOLALITY 290 mosm/kg (275-300); CARBON DIOXIDE 26.5 mmol/L (21.0-32.0); CHLORIDE - SERUM 103 mmol/L (98-107); CREATININE - SERUM 0.9 mg/dL (0.6-1.3); LIPASE 179 U/L (73-393); POTASSIUM - SERUM 4.3 mmol/L (3.5-5.1); PROTEIN - SERUM 7.5 g/dL (6.4-8.2); SODIUM 138 mmol/L (136-145); UREA NITROGEN 9 mg/dL (7-18); eGFR NON AFRICAN AMERICAN 74 mL/min (90-120)
[2017-10-15 10:36] LABS: GLUCOSE 386 mg/dL (74-106)
[2017-12-06] MEDS ORDERED: COZAAR100 MG PO (15:48)
[2017-12-06] MEDS ORDERED: BASAGLAR K100 UNIT/1 SC (15:50)
[2017-12-06] MEDS ORDERED: NEURONTIN600 MG PO (15:50)
[2017-12-06] MEDS ORDERED: TOPROL XL25 MG PO (15:52)
[2017-12-06] MEDS ORDERED: LIPITOR40 MG PO (15:52)
== END 2017-10-15 15:15 | disposition home or self-care (01) ==
LOC: D.ER 08:41
PROVIDERS: Family Medicine
DX: K59.00 Constipation, unspecified (principal); R11.10 Vomiting, unspecified; E11.9 Type 2 diabetes mellitus without complications; Z79.4 Long term (current) use of insulin; I10 Essential (primary) hypertension; K21.9 Gastro-esophageal reflux disease without esophagitis

== ENCOUNTER → 2017-10-18 10:57 | Outpatient (CLI) | payer MEDICARE, MEDICAID ==
[2017-06-19 11:09] VITALS: BMI 38.1
[~2017-10-18 10:57] MED LIST changes: +BASAGLAR K100 UNIT/1 SC; +COZAAR100 MG PO; +LIPITOR40 MG PO; +NEURONTIN600 MG PO; +TOPROL XL25 MG PO
== END | disposition home or self-care (01) ==
LOC: D.RAD 10:57
DX: K59.00 Constipation, unspecified (principal)

== ENCOUNTER → 2017-10-28 08:42 | Outpatient (CLI) | payer MEDICARE, MEDICAID ==
[2017-06-19 11:09] VITALS: BMI 38.1
[~2017-10-28 08:42] MED LIST changes: -BASAGLAR K100 UNIT/1 SC; -COZAAR100 MG PO; -LIPITOR40 MG PO; -NEURONTIN600 MG PO; -TOPROL XL25 MG PO
== END | disposition home or self-care (01) ==
LOC: D.NM 08:42
DX: R10.13 Epigastric pain (principal); R11.2 Nausea with vomiting, unspecified; K59.00 Constipation, unspecified; K92.1 Melena

== ENCOUNTER 2017-11-09 16:18 | Emergency (ER) | payer MEDICARE, MEDICAID ==
[2017-06-19 11:09] VITALS: BMI 38.1
[2017-12-06] MEDS ORDERED: COZAAR100 MG PO (15:48)
[2017-12-06] MEDS ORDERED: NEURONTIN600 MG PO (15:50)
[2017-12-06] MEDS ORDERED: BASAGLAR K100 UNIT/1 SC (15:50)
[2017-12-06] MEDS ORDERED: TOPROL XL25 MG PO (15:52)
[2017-12-06] MEDS ORDERED: LIPITOR40 MG PO (15:52)
== END 2017-11-09 17:18 | disposition home or self-care (01) ==
LOC: D.ER 16:18
DX: J20.9 Acute bronchitis, unspecified (principal); J06.9 Acute upper respiratory infection, unspecified; K21.9 Gastro-esophageal reflux disease without esophagitis; E11.9 Type 2 diabetes mellitus without complications; Z79.4 Long term (current) use of insulin; F17.200 Nicotine dependence, unspecified, uncomplicated

== ENCOUNTER 2017-11-16 22:18 | Emergency (ER) | payer MEDICARE, MEDICAID ==
[2017-06-19 11:09] VITALS: BMI 38.1
[2017-12-06] MEDS ORDERED: COZAAR100 MG PO (15:48)
[2017-12-06] MEDS ORDERED: NEURONTIN600 MG PO (15:50)
[2017-12-06] MEDS ORDERED: BASAGLAR K100 UNIT/1 SC (15:50)
[2017-12-06] MEDS ORDERED: LIPITOR40 MG PO (15:52)
[2017-12-06] MEDS ORDERED: TOPROL XL25 MG PO (15:52)
== END 2017-11-16 23:34 | disposition home or self-care (01) ==
LOC: D.ER 22:18
DX: J20.9 Acute bronchitis, unspecified (principal); J06.9 Acute upper respiratory infection, unspecified; E11.9 Type 2 diabetes mellitus without complications; Z79.4 Long term (current) use of insulin; K21.9 Gastro-esophageal reflux disease without esophagitis

== ENCOUNTER 2018-03-26 09:45 | Emergency (ER) | payer MEDICARE, MEDICAID ==
[~2018-03-26] VITALS: Ht 162.6 cm; Wt 108.2 kg
[~2018-03-26 09:45] MED LIST changes: +BASAGLAR K100 UNIT/1 SC; +COZAAR100 MG PO; +LIPITOR40 MG PO; +NEURONTIN600 MG PO; +TOPROL XL25 MG PO
[2018-03-26 09:48] VITALS: Ht 162.6 cm; Wt 108.2 kg
[2018-03-26 10:06] LABS: BASOPHILS 0.3 % (0-2); EOSINOPHILS 1.2 % (0-7); HEMATOCRIT 41.6 % (36.0-48.0); IMMATURE GRANULOCYTES 0.1 % (0-5); LYMPHOCYTES 41.7 % (15-50); MCH 28.5 pg (26.0-34.0); MCHC 33.7 g/dL (31.0-37.0); MCV 84.6 fL (80.0-100.0); MONOCYTES 8.2 % (2-11); NEUTROPHILS 48.5 % (40-80); PLATELET COUNT 321 10x3/uL (130-400); RBC 4.92 10x6/uL (4.00-5.40); RDW 12.8 % (11.5-14.5); WBC 7.8 10x3/uL (4.8-10.8)
[2018-03-26 10:20] LABS: APPEARANCE HAZY (CLEAR); BILIRUBIN NEGATIVE (NEGATIVE); COLOR YELLOW (YELLOW); GLUCOSE NEGATIVE (NEGATIVE); KETONE NEGATIVE (NEGATIVE); NITRITE NEGATIVE (NEGATIVE); PROTEIN 2+ mg/dL (NEGATIVE); SPECIFIC GRAVITY 1.015 (1.005-1.020); UROBILINOGEN NORMAL (NORMAL)
[2018-03-26 10:23] LABS: ALBUMIN 3.4 g/dL (3.4-5.0); ANION GAP 13.5 mmol/L (8-16); CALCIUM 8.6 mg/dL (8.5-10.1); CARBON DIOXIDE 25.8 mmol/L (21.0-32.0); CREATININE - SERUM 1.1 mg/dL (0.6-1.3); POTASSIUM - SERUM 3.3 mmol/L (3.5-5.1)
[2018-03-26 10:29] LABS: BACTERIA FEW /hpf (NONE SEEN); GRANULAR CAST RARE /lpf (NONE SEEN); RED CELLS - URINE OCC /hpf (0-5); YEAST >1+ /hpf (NONE SEEN)
[2018-03-26 10:42] LABS: BILIRUBIN - TOTAL 0.43 mg/dL (0.2-1.3); PROTEIN - SERUM 7.1 g/dL (6.4-8.2)
[2018-03-26] MEDS ORDERED: MACROBID100 MG PO (10:49)
[2018-03-26 11:15] VITALS: BP 176/105
[2018-04-01 18:10] LABS: AEROBE ID Final report (())
[2018-04-03 16:16] LABS: AEROBE ID Final report (())
== END 2018-03-26 11:15 | disposition home or self-care (01) ==
LOC: D.ER 09:45
PROVIDERS: Emergency Medicine
DX: N39.0 Urinary tract infection, site not specified (principal); M54.5 Low back pain; G62.9 Polyneuropathy, unspecified; E11.9 Type 2 diabetes mellitus without complications; I10 Essential (primary) hypertension

== ENCOUNTER 2018-03-31 20:14 | Emergency (ER) | payer MEDICARE, MEDICAID ==
[~2018-03-31] VITALS: Ht 162.6 cm; Wt 108.2 kg
[2018-03-31 20:19] VITALS: Ht 162.6 cm; Wt 108.2 kg
[2018-03-31 21:31] LABS: BASOPHILS 0.2 % (0-2); EOSINOPHILS 1.5 % (0-7); HEMATOCRIT 35.4 % (36.0-48.0); HEMOGLOBIN 11.6 g/dL (12-16); IMMATURE GRANULOCYTES 0.4 % (0-5); LYMPHOCYTES 35.3 % (15-50); MCH 28.2 pg (26.0-34.0); MCHC 32.8 g/dL (31.0-37.0); MCV 85.9 fL (80.0-100.0); MEAN PLATELET VOLUME 10.1 fL (7.4-10.4); MONOCYTES 12.5 % (2-11); NEUTROPHILS 50.1 % (40-80); PLATELET COUNT 298 10x3/uL (130-400); RBC 4.12 10x6/uL (4.00-5.40); RDW 13.1 % (11.5-14.5); WBC 8.1 10x3/uL (4.8-10.8)
[2018-03-31 21:34] LABS: APPEARANCE CLEAR (CLEAR); BILIRUBIN NEGATIVE (NEGATIVE); COLOR YELLOW (YELLOW); GLUCOSE 1000 mg/dL (NEGATIVE); KETONE NEGATIVE (NEGATIVE); NITRITE NEGATIVE (NEGATIVE); PROTEIN TRACE mg/dL (NEGATIVE); UROBILINOGEN NORMAL (NORMAL)
[2018-03-31 21:36] LABS: BACTERIA MODERATE /hpf (NONE SEEN); EPITHELIAL CELLS 0-5 /hpf (0-5); RED CELLS - URINE OCC /hpf (0-5); WHITE CELLS - URINE 0-5 /hpf (0-5)
[2018-03-31 21:48] LABS: ALBUMIN 2.9 g/dL (3.4-5.0); ANION GAP 12.3 mmol/L (8-16); BILIRUBIN - TOTAL 0.37 mg/dL (0.2-1.3); CALCIUM 7.6 mg/dL (8.5-10.1); CARBON DIOXIDE 27.8 mmol/L (21.0-32.0); CREATININE - SERUM 0.9 mg/dL (0.6-1.3); POTASSIUM - SERUM 3.1 mmol/L (3.5-5.1)
[2018-03-31] MEDS ORDERED: ZANAFLEX4 MG PO (22:05)
[2018-03-31] MEDS ORDERED: KLOR-CON 1010 MEQ PO (22:05)
[2018-03-31 22:30] VITALS: BP 152/81
== END 2018-03-31 22:31 | disposition home or self-care (01) ==
LOC: D.ER 20:14
PROVIDERS: Family Medicine
DX: G62.9 Polyneuropathy, unspecified (principal); E87.6 Hypokalemia; E11.9 Type 2 diabetes mellitus without complications; Z79.4 Long term (current) use of insulin; M79.605 Pain in left leg; M79.604 Pain in right leg

== ENCOUNTER 2018-07-17 18:45 | Emergency (ER) | payer MEDICARE, MEDICAID ==
[~2018-07-17] VITALS: Ht 162.6 cm; Wt 104.5 kg
[~2018-07-17 18:45] MED LIST changes: +KLOR-CON 1010 MEQ PO; +ZANAFLEX4 MG PO
[2018-07-17 19:11] VITALS: Ht 162.6 cm; Wt 104.5 kg
[2018-07-17] MEDS ORDERED: CARDIZEM CD240 MG PO (19:14)
[2018-07-17] MEDS ORDERED: KLONOPIN1 MG PO (19:14)
[2018-07-17] MEDS ORDERED: ESTRACE1 MG PO (19:15)
[2018-07-17 20:32] LABS: APPEARANCE CLEAR (CLEAR); BILIRUBIN NEGATIVE (NEGATIVE); COLOR YELLOW (YELLOW); GLUCOSE 1000 mg/dL (NEGATIVE); KETONE NEGATIVE (NEGATIVE); NITRITE NEGATIVE (NEGATIVE); PROTEIN NEGATIVE (NEGATIVE); UROBILINOGEN NORMAL (NORMAL)
[2018-07-17 20:33] LABS: EPITHELIAL CELLS 0-5 /hpf (0-5); RED CELLS - URINE 0-5 /hpf (0-5); WHITE CELLS - URINE NSEEN /hpf (0-5)
[2018-07-17 20:39] LABS: BASOPHILS 0.3 % (0-2); EOSINOPHILS 1.5 % (0-7); HEMATOCRIT 40.8 % (36.0-48.0); HEMOGLOBIN 13.4 g/dL (12-16); IMMATURE GRANULOCYTES 0.1 % (0-5); MCH 28.3 pg (26.0-34.0); MCHC 32.8 g/dL (31.0-37.0); MCV 86.1 fL (80.0-100.0); MEAN PLATELET VOLUME 10.2 fL (7.4-10.4); MONOCYTES 10.3 % (2-11); NEUTROPHILS 57.8 % (40-80); PLATELET COUNT 323 10x3/uL (130-400); RBC 4.74 10x6/uL (4.00-5.40); RDW 12.6 % (11.5-14.5); WBC 7.9 10x3/uL (4.8-10.8)
[2018-07-17 20:56] LABS: ALKALINE PHOSPHATASE 105 U/L (46-116); ALT (SGPT) 22 U/L (10-68); AMYLASE - SERUM 105 U/L (25-115); BILIRUBIN - TOTAL 0.18 mg/dL (0.2-1.3); CALC OSMOLALITY 296 mosm/kg (275-300); CALCIUM 8.2 mg/dL (8.5-10.1); CHLORIDE - SERUM 102 mmol/L (98-107); CREATININE - SERUM 1.3 mg/dL (0.6-1.3); LIPASE 172 U/L (73-393); POTASSIUM - SERUM 3.5 mmol/L (3.5-5.1); PROTEIN - SERUM 6.8 g/dL (6.4-8.2); SODIUM 138 mmol/L (136-145); TROPONIN-I < 0.017 ng/mL (0.000-0.060); UREA NITROGEN 10 mg/dL (7-18); eGFR NON AFRICAN AMERICAN 48 mL/min (90-120)
[2018-07-17 21:05] LABS: GLUCOSE 495 mg/dL (74-106)
[2018-07-17] MEDS ORDERED: CIPRO500 MG PO (23:39)
[2018-07-17] MEDS ORDERED: FLAGYL500 MG PO (23:39)
[2018-07-17 23:50] VITALS: BP 129/73
== END 2018-07-17 23:50 | disposition home or self-care (01) ==
LOC: D.ER 18:45
PROVIDERS: Emergency Medicine
DX: K50.00 Crohn's disease of small intestine without complications (principal); R50.9 Fever, unspecified; E11.9 Type 2 diabetes mellitus without complications; Z79.4 Long term (current) use of insulin; I10 Essential (primary) hypertension

== ENCOUNTER 2018-08-16 09:09 | Emergency (ER) | payer MEDICARE, MEDICAID ==
[~2018-08-16] VITALS: Ht 162.6 cm; Wt 64.1 kg
[~2018-08-16 09:09] MED LIST changes: +CARDIZEM CD240 MG PO; +CIPRO500 MG PO; +ESTRACE1 MG PO; +FLAGYL500 MG PO
[2018-08-16 09:14] VITALS: Ht 162.6 cm; Wt 64.1 kg
[2018-08-16 09:47] LABS: APPEARANCE HAZY (CLEAR); BILIRUBIN NEGATIVE (NEGATIVE); COLOR YELLOW (YELLOW); GLUCOSE NEGATIVE (NEGATIVE); KETONE NEGATIVE (NEGATIVE); NITRITE NEGATIVE (NEGATIVE); PROTEIN 2+ mg/dL (NEGATIVE); UROBILINOGEN NORMAL (NORMAL)
[2018-08-16 09:48] LABS: BACTERIA MODERATE /hpf (NONE SEEN); EPITHELIAL CELLS 0-5 /hpf (0-5); RED CELLS - URINE 0-5 /hpf (0-5); WHITE CELLS - URINE 0-5 /hpf (0-5)
[2018-08-16 09:59] LABS: BASOPHILS 0.2 % (0-2); EOSINOPHILS 1.7 % (0-7); HEMOGLOBIN 12.7 g/dL (12-16); IMMATURE GRANULOCYTES 0.4 % (0-5); LYMPHOCYTES 34.4 % (15-50); MCH 28.2 pg (26.0-34.0); MCHC 32.6 g/dL (31.0-37.0); MCV 86.5 fL (80.0-100.0); MEAN PLATELET VOLUME 10.2 fL (7.4-10.4); MONOCYTES 10.6 % (2-11); NEUTROPHILS 52.7 % (40-80); PLATELET COUNT 300 10x3/uL (130-400); RBC 4.51 10x6/uL (4.00-5.40); RDW 13.2 % (11.5-14.5); WBC 8.4 10x3/uL (4.8-10.8)
[2018-08-16 10:13] LABS: ALBUMIN 2.8 g/dL (3.4-5.0); ANION GAP 15.7 mmol/L (8-16); BILIRUBIN - TOTAL 0.42 mg/dL (0.2-1.3); CARBON DIOXIDE 24.3 mmol/L (21.0-32.0); CREATININE - SERUM 0.9 mg/dL (0.6-1.3); PROTEIN - SERUM 6.6 g/dL (6.4-8.2)
[2018-08-16 12:05] LABS: HCG SERUM NEGATIVE (NEGATIVE)
[2018-08-16] MEDS ORDERED: PHENERGAN12.5 MG RC (14:25)
[2018-08-16] MEDS ORDERED: LOMOTIL 2.5-0.1 EAC1 PO (14:25)
[2018-08-16 14:36] VITALS: BP 142/78
== END 2018-08-16 14:38 | disposition home or self-care (01) ==
LOC: D.ER 09:09
PROVIDERS: Family Medicine
DX: A08.4 Viral intestinal infection, unspecified (principal); R10.32 Left lower quadrant pain; R50.9 Fever, unspecified; E11.9 Type 2 diabetes mellitus without complications; I10 Essential (primary) hypertension

== ENCOUNTER → 2018-10-14 07:19 | Outpatient (CLI) | payer MEDICARE, MEDICAID ==
[~2018-10-14 07:19] MED LIST changes: +COMPAZINE25 MG RC; +ELAVIL25 MG PO; +LOMOTIL 2.5-0.1 EAC1 PO; +PHENERGAN12.5 MG RC; +PHENERGAN25 MG RC; +ZANTAC300 MG PO; +[UNRECOGNIZED DRUG - REMARK] PO
[2018-10-14 08:34] LABS: ALBUMIN 2.9 g/dL (3.4-5.0); BILIRUBIN - DIRECT 0.06 mg/dL (0.00-0.30); BILIRUBIN - INDIRECT 0.2 mg/dL (0.00-1.00); BILIRUBIN - TOTAL 0.26 mg/dL (0.2-1.3); PROTEIN - SERUM 7.1 g/dL (6.4-8.2)
[2018-10-15 07:22] LABS: HEPATITIS C ANTIBODY <0.1 S/CO RAT (0.0-0.9)
== END | disposition home or self-care (01) ==
LOC: D.US 07:19
PROVIDERS: Internal Medicine Gastroenterology
DX: K76.0 Fatty (change of) liver, not elsewhere classified (principal)

== ENCOUNTER → 2018-12-01 07:25 | Outpatient (CLI) | payer MEDICARE, MEDICAID ==
[2018-08-16 09:14] VITALS: BMI 24.2
[~2018-12-01 07:25] MED LIST changes: -COMPAZINE25 MG RC; -ELAVIL25 MG PO; -PHENERGAN25 MG RC; -ZANTAC300 MG PO; -[UNRECOGNIZED DRUG - REMARK] PO
== END | disposition home or self-care (01) ==
LOC: D.NM 07:25
PROVIDERS: ATTEND Internal Medicine Gastroenterology
DX: R11.2 Nausea with vomiting, unspecified (principal)

== ENCOUNTER 2019-01-23 11:37 | Emergency (ER) | payer MEDICARE, MEDICAID ==
[~2019-01-23] VITALS: Ht 162.6 cm; Wt 107.3 kg
[2019-01-23 11:58] VITALS: Ht 162.6 cm; Wt 107.3 kg
[2019-01-23] MEDS ORDERED: ELAVIL25 MG PO (13:44)
[2019-01-23 14:01] VITALS: BP 149/95
== END 2019-01-23 14:01 | disposition home or self-care (01) ==
LOC: D.ER 11:37
DX: E11.40 Type 2 diabetes mellitus with diabetic neuropathy, unspecified (principal); M79.605 Pain in left leg; M79.604 Pain in right leg

== ENCOUNTER 2019-02-04 22:22 | Emergency (ER) | payer MEDICARE, MEDICAID ==
[~2019-02-04] VITALS: Ht 162.6 cm; Wt 105.5 kg
[~2019-02-04 22:22] MED LIST changes: +ELAVIL25 MG PO
[2019-02-04 22:31] VITALS: BP 168/98; Ht 162.6 cm; Wt 105.5 kg
[2019-02-04] MEDS ORDERED: ZANTAC300 MG PO (22:34)
== END 2019-02-04 23:20 | disposition left against medical advice (07) ==
LOC: D.ER 22:22
DX: R11.2 Nausea with vomiting, unspecified (principal); R19.7 Diarrhea, unspecified; R73.9 Hyperglycemia, unspecified

== ENCOUNTER 2019-02-07 15:28 | Emergency (ER) | payer MEDICARE, MEDICAID ==
[~2019-02-07] VITALS: Ht 162.6 cm; Wt 100.0 kg
[~2019-02-07 15:28] MED LIST changes: +ZANTAC300 MG PO
[2019-02-07 15:34] VITALS: Ht 162.6 cm; Wt 100.0 kg
[2019-02-07 15:56] LABS: BASOPHILS 0.2 % (0-2); HEMATOCRIT 37.4 % (36.0-48.0); HEMOGLOBIN 12.3 g/dL (12-16); IMMATURE GRANULOCYTES 0.2 % (0-5); MCH 28.5 pg (26.0-34.0); MCHC 32.9 g/dL (31.0-37.0); MCV 86.8 fL (80.0-100.0); MEAN PLATELET VOLUME 9.8 fL (7.4-10.4); MONOCYTES 6.9 % (2-11); NEUTROPHILS 61.7 % (40-80); PLATELET COUNT 349 10x3/uL (130-400); RBC 4.31 10x6/uL (4.00-5.40); RDW 12.3 % (11.5-14.5); WBC 9.3 10x3/uL (4.8-10.8)
[2019-02-07 16:09] LABS: ALBUMIN 3.2 g/dL (3.4-5.0); ANION GAP 11.5 mmol/L (8-16); BILIRUBIN - TOTAL 0.37 mg/dL (0.2-1.3); CALCIUM 8.2 mg/dL (8.5-10.1); CARBON DIOXIDE 24.4 mmol/L (21.0-32.0); CREATININE - SERUM 1.6 mg/dL (0.6-1.3); POTASSIUM - SERUM 3.9 mmol/L (3.5-5.1); PROTEIN - SERUM 6.9 g/dL (6.4-8.2)
[2019-02-07 16:20] LABS: APPEARANCE CLEAR (CLEAR); BILIRUBIN NEGATIVE (NEGATIVE); COLOR YELLOW (YELLOW); EPITHELIAL CELLS 0-5 /hpf (0-5); GLUCOSE NEGATIVE (NEGATIVE); KETONE NEGATIVE (NEGATIVE); KETONE - SERUM NEGATIVE (NEGATIVE); NITRITE NEGATIVE (NEGATIVE); PROTEIN 3+ mg/dL (NEGATIVE); RED CELLS - URINE OCC /hpf (0-5); SPECIFIC GRAVITY 1.025 (1.005-1.020); UROBILINOGEN NORMAL (NORMAL); WHITE CELLS - URINE NSEEN /hpf (0-5)
[2019-02-07 16:22] LABS: MAGNESIUM - SERUM 1.3 mg/dL (1.8-2.4)
[2019-02-07] MEDS ORDERED: COMPAZINE25 MG RC (16:29)
[2019-02-07 16:48] VITALS: BP 136/86
== END 2019-02-07 16:49 | disposition home or self-care (01) ==
LOC: D.ER 15:28
PROVIDERS: Emergency Medicine
DX: R11.10 Vomiting, unspecified (principal); R19.7 Diarrhea, unspecified; E11.65 Type 2 diabetes mellitus with hyperglycemia; Z79.4 Long term (current) use of insulin; E83.42 Hypomagnesemia; N28.9 Disorder of kidney and ureter, unspecified

== ENCOUNTER 2019-02-10 11:19 | Emergency (ER) | payer MEDICARE, MEDICAID ==
[~2019-02-10] VITALS: Ht 162.6 cm; Wt 106.4 kg
[~2019-02-10 11:19] MED LIST changes: +COMPAZINE25 MG RC
[2019-02-10 11:36] VITALS: BP 141/78; Ht 162.6 cm; Wt 106.4 kg
[2019-02-10] MEDS ORDERED: [UNRECOGNIZED DRUG - REMARK] PO (11:42)
== END 2019-02-10 15:08 | disposition home or self-care (01) ==
LOC: D.ER 11:19
DX: S93.402A Sprain of unspecified ligament of left ankle, initial encounter (principal); S33.5XXA Sprain of ligaments of lumbar spine, initial encounter; M25.561 Pain in right knee; M25.551 Pain in right hip; W19.XXXA Unspecified fall, initial encounter

== ENCOUNTER 2019-02-12 10:04 | Emergency (ER) | payer MEDICARE, MEDICAID ==
[~2019-02-12] VITALS: Ht 162.6 cm; Wt 106.4 kg
[~2019-02-12 10:04] MED LIST changes: +[UNRECOGNIZED DRUG - REMARK] PO
[2019-02-12 10:06] VITALS: Ht 162.6 cm; Wt 106.4 kg
[2019-02-12 11:55] VITALS: BP 156/89
[2019-02-13] MEDS ORDERED: PHENERGAN25 M1 PO (00:21)
[2019-02-13] MEDS ORDERED: LOMOTIL 2.5-0.1 EAC1 PO (00:21)
== END 2019-02-12 11:38 | disposition home or self-care (01) ==
LOC: D.ER 10:04
DX: M79.18 Myalgia, other site (principal); E11.40 Type 2 diabetes mellitus with diabetic neuropathy, unspecified; E78.5 Hyperlipidemia, unspecified; E11.22 Type 2 diabetes mellitus with diabetic chronic kidney disease; I12.9 Hypertensive chronic kidney disease with stage 1 through stage 4 chronic kidney disease, or unspecified chronic kidney disease; N18.9 Chronic kidney disease, unspecified

== ENCOUNTER 2019-02-12 21:00 | Emergency (ER) | payer MEDICARE, MEDICAID ==
[~2019-02-12] VITALS: Ht 162.6 cm; Wt 106.4 kg
[2019-02-12 21:05] VITALS: Ht 162.6 cm; Wt 106.4 kg
[2019-02-12 21:34] LABS: BASOPHILS 0.2 % (0-2); EOSINOPHILS 1.4 % (0-7); HEMATOCRIT 36.8 % (36.0-48.0); HEMOGLOBIN 12.2 g/dL (12-16); IMMATURE GRANULOCYTES 0.3 % (0-5); LYMPHOCYTES 34.3 % (15-50); MCH 28.4 pg (26.0-34.0); MCHC 33.2 g/dL (31.0-37.0); MCV 85.8 fL (80.0-100.0); MEAN PLATELET VOLUME 9.5 fL (7.4-10.4); MONOCYTES 11.9 % (2-11); NEUTROPHILS 51.9 % (40-80); PLATELET COUNT 338 10x3/uL (130-400); RBC 4.29 10x6/uL (4.00-5.40); RDW 12.5 % (11.5-14.5); WBC 11.5 10x3/uL (4.8-10.8)
[2019-02-12 21:38] LABS: APPEARANCE CLEAR (CLEAR); BILIRUBIN NEGATIVE (NEGATIVE); COLOR STRAW (YELLOW); GLUCOSE NEGATIVE (NEGATIVE); KETONE NEGATIVE (NEGATIVE); NITRITE NEGATIVE (NEGATIVE); PROTEIN 1+ mg/dL (NEGATIVE); UROBILINOGEN NORMAL (NORMAL)
[2019-02-12 21:40] LABS: BACTERIA MODERATE /hpf (NONE SEEN); EPITHELIAL CELLS 0-5 /hpf (0-5); RED CELLS - URINE 0-5 /hpf (0-5); WHITE CELLS - URINE 0-5 /hpf (0-5)
[2019-02-12 22:26] LABS: ALBUMIN 3.3 g/dL (3.4-5.0); ANION GAP 14.4 mmol/L (8-16); BILIRUBIN - TOTAL 0.28 mg/dL (0.2-1.3); CALCIUM 8.5 mg/dL (8.5-10.1); CARBON DIOXIDE 24.9 mmol/L (21.0-32.0); CREATININE - SERUM 1.4 mg/dL (0.6-1.3); POTASSIUM - SERUM 4.3 mmol/L (3.5-5.1); PROTEIN - SERUM 6.5 g/dL (6.4-8.2)
[2019-02-13] MEDS ORDERED: LOMOTIL 2.5-0.1 EAC1 PO (00:21)
[2019-02-13] MEDS ORDERED: PHENERGAN25 M1 PO (00:21)
[2019-02-13 00:40] VITALS: BP 183/91
== END 2019-02-13 00:40 | disposition home or self-care (01) ==
LOC: D.ER 21:00
PROVIDERS: Family Medicine
DX: A08.4 Viral intestinal infection, unspecified (principal)

== ENCOUNTER 2019-03-07 10:12 | Emergency (ER) | payer MEDICARE, MEDICAID ==
[~2019-03-07] VITALS: Ht 162.6 cm; Wt 106.4 kg
[2019-03-07 10:17] VITALS: Ht 162.6 cm; Wt 106.4 kg
[2019-03-07 11:08] LABS: APPEARANCE CLEAR (CLEAR); BILIRUBIN NEGATIVE (NEGATIVE); COLOR STRAW (YELLOW); GLUCOSE NEGATIVE (NEGATIVE); KETONE NEGATIVE (NEGATIVE); NITRITE NEGATIVE (NEGATIVE); PROTEIN 2+ mg/dL (NEGATIVE); UROBILINOGEN NORMAL (NORMAL)
[2019-03-07 11:09] LABS: RED CELLS - URINE 0-5 /hpf (0-5); WHITE CELLS - URINE 0-5 /hpf (0-5)
[2019-03-07] MEDS ORDERED: PHENERGAN25 MG RC (11:18)
[2019-03-07] MEDS ORDERED: LOMOTIL 2.5-0.1 EAC1 PO (11:18)
[2019-03-07 11:23] VITALS: BP 146/87
== END 2019-03-07 11:31 | disposition home or self-care (01) ==
LOC: D.ER 10:12
PROVIDERS: Emergency Medicine
DX: R11.10 Vomiting, unspecified (principal); R19.7 Diarrhea, unspecified

== ENCOUNTER → 2019-03-31 08:04 | Outpatient (CLI) | payer MEDICARE, MEDICAID ==
[2019-03-07 10:17] VITALS: BMI 40.2
[~2019-03-31 08:04] MED LIST changes: +PHENERGAN25 MG RC
[2019-03-31 08:52] LABS: ALBUMIN 3.5 g/dL (3.4-5.0); BILIRUBIN - DIRECT 0.08 mg/dL (0.00-0.30); BILIRUBIN - INDIRECT 0.32 mg/dL (0.00-1.00); BILIRUBIN - TOTAL 0.4 mg/dL (0.2-1.3); PROTEIN - SERUM 7.6 g/dL (6.4-8.2)
== END | disposition home or self-care (01) ==
LOC: D.LAB 08:04 → D.US 09:00
PROVIDERS: ATTEND Internal Medicine Gastroenterology
DX: K76.0 Fatty (change of) liver, not elsewhere classified (principal)

== ENCOUNTER → 2019-09-01 07:48 | Outpatient (CLI) | payer MEDICARE, MEDICAID ==
[2019-03-07 10:17] VITALS: BMI 40.2
[2019-09-01 08:47] LABS: ALBUMIN 3.2 g/dL (3.4-5.0); BILIRUBIN - DIRECT 0.08 mg/dL (0.00-0.30); BILIRUBIN - INDIRECT 0.17 mg/dL (0.00-1.00); BILIRUBIN - TOTAL 0.25 mg/dL (0.2-1.3); PROTEIN - SERUM 7.4 g/dL (6.4-8.2)
== END | disposition home or self-care (01) ==
LOC: D.US 08-31 08:30
PROVIDERS: ATTEND Internal Medicine Gastroenterology
DX: K76.0 Fatty (change of) liver, not elsewhere classified (principal)

== ENCOUNTER → 2020-04-11 08:10 | Outpatient (CLI) | payer MEDICARE, MEDICAID ==
[2019-03-07 10:17] VITALS: BMI 40.2
[2020-04-11 09:21] LABS: ALBUMIN 2.8 g/dL (3.4-5.0); BILIRUBIN - INDIRECT 0.23 mg/dL (0.00-1.00); BILIRUBIN - TOTAL 0.27 mg/dL (0.2-1.3); PROTEIN - SERUM 6.9 g/dL (6.4-8.2)
[2020-04-11 09:22] LABS: BILIRUBIN - DIRECT 0.04 mg/dL (0.00-0.30)
== END | disposition home or self-care (01) ==
LOC: D.US 08:10
PROVIDERS: ATTEND Internal Medicine Gastroenterology
DX: K76.0 Fatty (change of) liver, not elsewhere classified (principal)

== ENCOUNTER → 2020-09-01 09:06 | Outpatient (CLI) | payer MEDICARE, MEDICAID ==
[2019-03-07 10:17] VITALS: BMI 40.2
[2020-09-01 09:44] LABS: ALBUMIN 2.8 g/dL (3.4-5.0); BILIRUBIN - DIRECT 0.06 mg/dL (0.00-0.30); BILIRUBIN - INDIRECT 0.15 mg/dL (0.00-1.00); BILIRUBIN - TOTAL 0.21 mg/dL (0.2-1.3); PROTEIN - SERUM 7.7 g/dL (6.4-8.2)
== END | disposition home or self-care (01) ==
LOC: D.US 08-30 09:00
PROVIDERS: ATTEND Internal Medicine Gastroenterology
DX: K76.0 Fatty (change of) liver, not elsewhere classified (principal)

== ENCOUNTER 2020-09-06 11:36 | Inpatient (IN) | payer MEDICARE, MEDICAID ==
[~2020-09-06] VITALS: Ht 162.6 cm; Wt 116.4 kg
[2020-09-06 11:59] LABS: BASOPHILS 0.2 % (0-2); HEMATOCRIT 28.1 % (36.0-48.0); HEMOGLOBIN 8.9 g/dL (12-16); IMMATURE GRANULOCYTES 0.2 % (0-5); LYMPHOCYTE ABS# 1.98 10x3/uL (1.18-3.74); LYMPHOCYTES 20.7 % (15-50); MCH 27.8 pg (26.0-34.0); MCHC 31.7 g/dL (31.0-37.0); MCV 87.8 fL (80.0-100.0); MEAN PLATELET VOLUME 8.8 fL (7.4-10.4); MONOCYTES 10.6 % (2-11); NEUTROPHIL ABS# 6.33 10x3/uL (1.56-6.13); NEUTROPHILS 66.3 % (40-80); PLATELET COUNT 346 10x3/uL (130-400); RDW 12.8 % (11.5-14.5); WBC 9.6 10x3/uL (4.8-10.8)
[2020-09-06 12:22] LABS: APTT 30.4 SECONDS (22.8-39.4); INR 1.07 (0.85-1.17); PROTIME 12.9 SECONDS (11.6-15.0)
[2020-09-06 12:26] LABS: ALBUMIN 2.4 g/dL (3.4-5.0); ALKALINE PHOSPHATASE 152 U/L (30-120); ALT (SGPT) 19 U/L (10-68); BILIRUBIN - TOTAL 0.19 mg/dL (0.2-1.3); CALC OSMOLALITY 292 mosm/kg (275-300); CARBON DIOXIDE 19.6 mmol/L (21.0-32.0); CHLORIDE - SERUM 108 mmol/L (98-107); CKMB 2.7 U/L (0.0-3.6); CREATINE KINASE 707 UL (21-215); CREATININE - SERUM 5.7 mg/dL (0.6-1.3); GLUCOSE 112 mg/dL (74-106); POTASSIUM - SERUM 4.5 mmol/L (3.5-5.1); PRO BNP 7926 pg/mL (0-125); PROTEIN - SERUM 6.7 g/dL (6.4-8.2); SODIUM 140 mmol/L (136-145); TROPONIN-I < 0.017 ng/mL (0.000-0.060); UREA NITROGEN 50 mg/dL (7-18); eGFR NON AFRICAN AMERICAN 9 mL/min (90-120)
[2020-09-06 12:35] LABS: CALCIUM 6.6 mg/dL (8.5-10.1)
[2020-09-06 13:55] VITALS: BP 185/90
--- NOTE | 2020-09-06 14:05 | NUR ---
PT ARRIVED VIA WHEELCHAIR TO ROOM. PT AMBULATED TO BED WITHOUT ASSISTANCE. RR EVEN NON LABORED. PT ON ROOM AIR. PT AAOX3, PLEASANT. PT APPEARS ANXIOUS AND TEARFUL ON ADMIT. REASSURANCE AND EXPLANATION GIVEN. PT STATES UNDERSTANDING. PT VS STABLE WITH ELEVATED BP NOTED. PT GIVEN INSTRUCTIONS REGARDING CALL LIGHT, FALL PRECAUTIONS, AND MEDICATIONS. PT STATES UNDERSTANDING. IS PLACED ON BEDSIDE TABLE WITH INSTRUCTIONS, SCDS PLACED BLE. SWELLING NOTED TO BLE. NO NEEDS VOICED. CLWR.
[2020-09-06] MEDS ORDERED: NORVASC5 MG (14:24)
[2020-09-06] MEDS ORDERED: XANAX1 MG (14:25)
[2020-09-06] MEDS ORDERED: METOPROLOL TART50 MG (14:25)
[2020-09-06] MEDS ORDERED: OMEPRAZOLE40 MG (14:25)
[2020-09-06] MEDS ORDERED: COZAAR100 MG (14:26)
[2020-09-06] MEDS ORDERED: NEURONTIN600 MG (14:30)
[2020-09-06 14:37] VITALS: BP 211/89; BMI 44.0
--- NOTE | 2020-09-06 14:45 | NUR ---
EKG PERFORMED PER ORDER
--- NOTE | 2020-09-06 15:08 | NUR ---
PRN MEDICATION GIVEN FOR HEADACHE, FRESH WATER AT BEDSIDE. NO NEEDS VOICED. CLWR.
[2020-09-06 15:11] VITALS: BP 168/95
[2020-09-06 15:46] VITALS: BP 168/95
[2020-09-06 17:23] LABS: CKMB 2.5 U/L (0.0-3.6); CREATINE KINASE 684 UL (21-215)
[2020-09-06 17:24] LABS: TROPONIN-I < 0.017 ng/mL (0.000-0.060)
[2020-09-06 17:51] VITALS: Ht 162.6 cm; Wt 116.4 kg
[2020-09-06 18:33] LABS: CREATININE - URINE 29.2 mg/dL (30-125)
[2020-09-06 18:44] LABS: BILIRUBIN NEGATIVE (NEGATIVE); KETONE NEGATIVE (NEGATIVE); NITRITE NEGATIVE (NEGATIVE); PRO/CRE RATIO URINE 12.6 mg/g; PROTEIN - URINE 366.6 mg/dL (0.0-11.9); UROBILINOGEN NORMAL mg/dL (< 2)
[2020-09-06 18:47] LABS: BACTERIA FEW HPF (NONE SEEN); SQUAMOUS EPITHELIAL 0-5 HPF (0-4); WHITE CELLS - URINE 0-5 HPF (0-4)
[2020-09-06 19:38] VITALS: BP 176/106
[2020-09-06 20:48] LABS: % SATURATION 14 % (15-55); IRON 33 ug/dl (35-150); TOTAL IRON BIND CAPACITY 232 ug/dl (260-445); UNSAT IRON BIND CAPACITY 199 ug/dl (150-375)
[2020-09-06 21:12] LABS: PHOSPHOROUS 5.2 mg/dL (2.5-4.9)
[2020-09-06 22:52] LABS: CKMB 2.3 U/L (0.0-3.6); CREATINE KINASE 654 UL (21-215); TROPONIN-I < 0.017 ng/mL (0.000-0.060)
[2020-09-06 23:24] VITALS: BP 151/88
--- NOTE | 2020-09-06 23:58 | NUR ---
PATIENT SITTING HIGH FOWLERS AAOX4, RESP EVEN AND NON LABORED, NO S/S OF DISTRESS, PATIENT STATES SHE HAS A HEADACHE AND WANTS TO GO HOME BECAUSE SHE CANT SLEEP IN A HOSPITAL, PATIENT EDUCATION PROVIDED ON NOT LEAVING AMA, HOUSE SUP AND CHARGE NURSE NOTIFIED, AMA FORMS PRINTED AND MEDICATIONS WASTED, PATIENT DECIDED TO STAY IN HOSPITAL, MEDICATIONS PULLED AGAIN AND ADMINISTERED WITHOUT COMPLICATIONS, NO FURTHER NEEDS AT THIS TIME, RAJAT TELLEZ
[2020-09-07 04:00] VITALS: BP 136/96
[2020-09-07 05:40] LABS: BASOPHILS 0.2 % (0-2); EOSINOPHILS 2.4 % (0-7); HEMATOCRIT 28.8 % (36.0-48.0); HEMOGLOBIN 8.9 g/dL (12-16); IMMATURE GRANULOCYTES 0.4 % (0-5); LYMPHOCYTE ABS# 2.13 10x3/uL (1.18-3.74); LYMPHOCYTES 21.8 % (15-50); MCHC 30.9 g/dL (31.0-37.0); MCV 87.3 fL (80.0-100.0); MEAN PLATELET VOLUME 9.1 fL (7.4-10.4); MONOCYTES 9.3 % (2-11); NEUTROPHIL ABS# 6.45 10x3/uL (1.56-6.13); NEUTROPHILS 65.9 % (40-80); PLATELET COUNT 400 10x3/uL (130-400); RDW 12.8 % (11.5-14.5); WBC 9.8 10x3/uL (4.8-10.8)
--- NOTE | 2020-09-07 07:19 | NUR ---
WHEN ENTERING ROOM PT APPEARED UPSET THIS MORNING, PT ASKED ABOUT HER HOME MEDICATIONS FOR ANXIETY. CALLED KARINA AND RECEVIED TELEPHONE ORDER. ORDER READ BACK AND VERIFIED AND PLACED. WILL CONTINUE TO MONITOR.
--- NOTE | 2020-09-07 07:32 | NUR ---
AM MEDS GIVEN AT THIS TIME. PT LYING IN BED WITH HOB RAISED. COLLECTION HAT IN TOILET, INSTRUCTED PT REGARDING MEASURING OUTPUT. PT STATES UNDERSTANDING. RR EVEN NON LABORED. NO NEEDS VOICED. CLWR.
[2020-09-07 08:10] VITALS: BP 176/80
[2020-09-07 08:54] LABS: ALBUMIN 2.4 g/dL (3.4-5.0); ALKALINE PHOSPHATASE 147 U/L (30-120); ALT (SGPT) 22 U/L (10-68); BILIRUBIN - TOTAL 0.28 mg/dL (0.2-1.3); CALC OSMOLALITY 289 mosm/kg (275-300); CARBON DIOXIDE 20.2 mmol/L (21.0-32.0); CHLORIDE - SERUM 107 mmol/L (98-107); CREATINE KINASE 613 UL (21-215); CREATININE - SERUM 5.6 mg/dL (0.6-1.3); GLUCOSE 90 mg/dL (74-106); MAGNESIUM - SERUM 1.2 mg/dL (1.8-2.4); PHOSPHOROUS 5.8 mg/dL (2.5-4.9); POTASSIUM - SERUM 4.2 mmol/L (3.5-5.1); PROTEIN - SERUM 6.7 g/dL (6.4-8.2); SODIUM 139 mmol/L (136-145); UREA NITROGEN 46 mg/dL (7-18); eGFR NON AFRICAN AMERICAN 9 mL/min (90-120)
[2020-09-07 08:56] LABS: TROPONIN-I < 0.017 ng/mL (0.000-0.060)
[2020-09-07 09:29] LABS: CKMB 1.9 U/L (0.0-3.6)
--- NOTE | 2020-09-07 10:14 | NUR ---
PT ASSISTED WITH SHOWER BY PCT AT THIS TIME PER REQUEST.
[2020-09-07] MEDS ORDERED: CALCIUM 600 +1 EAC3 (11:14)
[2020-09-07] MEDS ORDERED: MAG-OX 400 MG400 MG (11:14)
--- NOTE | 2020-09-07 11:29 | NUR ---
AFTER SPEAKING TO [facility] HYDROMETER TESTER PT UPSET REGARDING HER NEWS. REASSURANCE GIVEN TO PT. PT STATES UNDERSTANDING AND APPRECIATION. NO NEEDS VOICED. CLWR.
[2020-09-07 11:38] VITALS: BP 119/97
--- NOTE | 2020-09-07 11:44 | NUR ---
MEDS GIVEN PER EMAR D/T CONTINUING HOME MEDS. PT SITTING IN BED ON PHONE, RR EVEN NON LABORED. NO NEEDS VOICED. CLWR.
--- NOTE | 2020-09-07 12:56 | NUR ---
PT GIVEN MEDS PER EMAR. PT LYING IN BED WITH HOB RAISED, RR EVEN NON LABORED. NO NEEDS VOICED AT THIS TIEM. CLWR.
[2020-09-07 16:11] VITALS: BP 184/90
--- NOTE | 2020-09-07 17:50 | NUR ---
BLADDER SCAN PERFORMED PER MD ORDER , DR BONILLA. NO GREATER THAN 15ML PER BLADDER SCAN. NOTIFIED MD. NO NEW ORDERS.
--- NOTE | 2020-09-07 18:10 | NUR ---
PT LYING IN BED WITH HOB RAISED, PRN MEDICATION GIVEN FOR HEADACHE. PT RR EVEN NON LABORED, NO NEEDS VOICED AT THIS TIME. CLWR.
[2020-09-07 20:48] VITALS: BP 178/81
[2020-09-08] VITALS: BP 149/73
--- NOTE | 2020-09-08 02:35 | NUR ---
I have reviewed this patient and I concur with the Shift Assessment completed by the Licensed Practical Nurse today this shift.
[2020-09-08 04:00] VITALS: BP 151/83
[2020-09-08 04:36] LABS: BASOPHILS 0.1 % (0-2); EOSINOPHILS 1.8 % (0-7); HEMATOCRIT 27.6 % (36.0-48.0); HEMOGLOBIN 8.4 g/dL (12-16); IMMATURE GRANULOCYTES 0.4 % (0-5); LYMPHOCYTE ABS# 1.81 10x3/uL (1.18-3.74); LYMPHOCYTES 21.1 % (15-50); MCH 26.6 pg (26.0-34.0); MCHC 30.4 g/dL (31.0-37.0); MCV 87.3 fL (80.0-100.0); MONOCYTES 8.4 % (2-11); NEUTROPHIL ABS# 5.84 10x3/uL (1.56-6.13); NEUTROPHILS 68.2 % (40-80); PLATELET COUNT 368 10x3/uL (130-400); RBC 3.16 10x6/uL (4.00-5.40); RDW 12.7 % (11.5-14.5); WBC 8.6 10x3/uL (4.8-10.8)
[2020-09-08 05:13] LABS: ALBUMIN 2.4 g/dL (3.4-5.0); ANION GAP 17.1 mmol/L (8-16); BILIRUBIN - TOTAL 0.24 mg/dL (0.2-1.3); CALCIUM 7.2 mg/dL (8.5-10.1); CARBON DIOXIDE 20.2 mmol/L (21.0-32.0); CREATININE - SERUM 5.9 mg/dL (0.6-1.3); MAGNESIUM - SERUM 1.3 mg/dL (1.8-2.4); POTASSIUM - SERUM 4.3 mmol/L (3.5-5.1); PROTEIN - SERUM 6.5 g/dL (6.4-8.2)
--- NOTE | 2020-09-08 05:45 | NUR ---
PT A/O X4 RR E/U. NO S/S OF DISTRESS VSS. PT SLEPT WELL. PT DENIES ANY PAIN OR FURTHER NEEDS AT THIS TIME. BED LOW,SCD'S ON, AND CALL LIGHT WITHIN REACH. WILL CONTINUE TO MONITOR.
[2020-09-08 08:32] VITALS: BP 182/97
[2020-09-08] MEDS ORDERED: HYDRALAZINE HCL50 MG PO (10:15)
[2020-09-08] MEDS ORDERED: CATAPRES TTS-3 TRANSDERM (10:19)
[2020-09-08 11:00] VITALS: BP 152/75
--- NOTE | 2020-09-08 15:52 | NUR ---
PT UP IN ROOM. PLEASANT & COOPERATIVE. VERBALIZES UNDERSTANDING OF DISCHARGE INSTRUCTIONS & THAT SHE CAN CALL BACK TO HOSPITAL IF ANY QUESTIONS. SCRIPT FOR CLONIDINE PATCH VERIFIED WITH DR BONILLA WHO STATES THAT IT IS ONLY 1 XWEEK. PATCH PLACED ON ANTERIOR RIGHT CHEST WALL WITH DATE TO REMIND PT OF WHEN TO CHANGE IT. WHEELED OUT TO PRIVATE VEHICLE. WISHED WELL
--- NOTE | 2020-09-08 18:18 | MORECARE ---
CASE MANAGEMENT DISCHARGE SUMMARY PATIENT: SUSY HANNON UNIT: [id number] ADM DATE: 09/06/20 AGE: 40 : [birth year] SEX: F ROOM/BED: D.4670 AUTHOR: SKY,DOC PHYSICIAN: REFERRING PHYSICIAN: MATTHEW NUNEZ MD DATE OF SERVICE: 09/08/20 Discharge Plan Patient Name: SUSY HANNON Facility: [facility]:[place] : 1980 Planned Disposition: Home Anticipated Discharge Date: Discharge Date: 09/08/2020 Expected LOS: Initial Reviewer: [email or web address] Initial Review Date: 09/06/2020 Generated: 09/08/20 7:17 pm Comments DCP- Discharge Planning Updated by [email or web address]: Monika Amos on 09/08/20 5:[address] Patient Name: SUSY HANNON Admission Status: ER Accout number: [id number] Admission Date: 09-06-2020 : 1980 Admission Diagnosis:HEART FAILURE, UNSPECIFIED Attending: MATTHEW NUNEZ Current LOS: 2 Anticipated DC Date: Planned Disposition: Home Primary Insurance: [employer]ICARE ADV Discharge Planning Comments: CM spoke with patient to complete initial dc planning assessment. CM educated patient on the CM role and verbal consent given by patient to complete assessment. Patient lives at home with her 18yr old daughter. Patient is independent. At discharge patient plans to return home and feels this is a safe discharge. CM discussed availability of home health, rehab services, and medical equipment. Patient will have family to transport home. Patient denied known discharge needs at this time. CM will continue to follow and will assist as needed with dc plans/needs. Business Services Administrator: Monika Amos DCPIA - Discharge Planning Initial Assessment Updated by [email or web address]: Monika Amos on 09/08/20 6:15 pm * Is the patient Alert and Oriented? Yes * How many steps to enter\exit or inside your home? flight * PCP Santa ROSALES * Pharmacy [facility] * Preadmission Environment Home with Family * ADLs Independent * Equipment None * List name and contact numbers for known caregivers / representatives who currently or will assist patient after discharge: Yohannes Cheung - [phone] * Verbal permission to speak to the caregivers and representatives has been obtained from the patient. Yes * Community resources currently utilized None * Additional services required to return to the preadmission environment? No * Can the patient safely return to the preadmission environment? Yes * Has this patient been hospitalized within the prior 30 days at any hospital? No Patient Name: SUSY HANNON Page [phone] at 1818 All edits/amendments must be made on the electronic document DICTATION DATE: 09/08/201816 NAVAL INSPECTOR: MOSHE 09/08/201816 RPT#: [id number] DC DATE:09/08/20 STATUS: DIS IN [facility] [address] [place] [address] END OF REPORT
--- NOTE | 2020-09-09 09:41 | EC ---
PATIENT:SUSY HANNON DATE OF SERVICE: 09/06/20 SEX: F MEDICAL RECORD: [id number] DATE OF : [birth year] LOCATION:D.M2 D.210 AGE OF PATIENT: 40 ADMISSION DATE: 09/06/20 REFERRING PHYSICIAN: INTERPRETING PHYSICIAN: JENNIFER DURAN MD ECHOCARDIOGRAM REPORT ECHO CHARGES 4 ECHO COMPLETE Date: 09/07/20 CLINICAL DIAGNOSIS: CHF ECHOCARDIOGRAPHIC MEASUREMENTS (adult normal given) AC root (d.<3.7cm) 3.0 cm LV Septum d (<1.2 cm> 1.5 cm Valve Excursion 1.7 cm LV Septum (systole) 2.2 cm Left Atria (s.<4.0cm> 4.2 cm LVPW d(<1.2cm) 1.2 cm RV (d.<2.3cm) 2.5 cm LVPW (sytole) 1.3 cm LV diastole(<5.6CM) 4.2 cm MV E-F(>70mm/sec) cm LV systole 2.7 cm LVOT Diameter 2.0 cm MV exc.(>10mm) 1.3 cm Est.ejection fraction (50-75%) % DOPPLER: LVIT cm/sec A 87 cm/sec E 69 cm/sec LA cm/sec RVSP 22 mmHg LVOT 136 cm/sec AOP1/2T m/s Asc. Ao 164 cm/sec RVOT 92 cm/sec RA cm/sec PA 104 cm/sec AV Gradient Peak 10.7 mmHg AV Mean 5.6 mmHg AV Area 2.5 cm MV Gradient Peak 5.4 mmHg MV Mean 3.1 mmHg MV Area cm COMMENTS: Leather Products Supervisor: Darío GAONA Copra Processor: 3 Dr. Boyle TAPE# Pericardial Effusion Y DATE OF SERVICE: Adequate 2D, color-flow imaging, spectral Doppler, and M-Mode Mild LVH. LV internal dimensions are normal. Wall motion is normal. EF is greater than or equal to 55%. Aortic valve is tricuspid. No evidence of stenosis by Doppler interrogation. Left atrium is minimally dilated at 4.2 cm. Mitral valve shows no prolapse. Trace MR. Right side is grossly normal. Trace TR. ECHOCARDIOGRAM REPORT [id number] SUSY HANNON TRANSINT:[id number] Voice Confirmation ID: [id number] DOCUMENT ID: [id number] JENNIFER DURAN MD at 0941 CC: [id number] DICTATION DATE: 09/08/20814 [place] ARCHITECT: 09/08/20920 DIS IN 09/08/20 [id number] [place] [address]
== END 2020-09-08 15:52 | disposition home or self-care (01) | DRG 291 ==
LOC: D.ER 11:36 → D.M2 13:58
PROVIDERS: Family Medicine; Internal Medicine Nephrology; ADMIT Family Medicine; ATTEND Family Medicine
DX: I13.0 Hypertensive heart and chronic kidney disease with heart failure and stage 1 through stage 4 chronic kidney disease, or unspecified chronic kidney disease (principal); I50.31 Acute diastolic (congestive) heart failure; I50.21 Acute systolic (congestive) heart failure; N17.9 Acute kidney failure, unspecified; Z68.41 Body mass index [BMI] 40.0-44.9, adult; N18.9 Chronic kidney disease, unspecified; E11.22 Type 2 diabetes mellitus with diabetic chronic kidney disease; E11.65 Type 2 diabetes mellitus with hyperglycemia; Z79.4 Long term (current) use of insulin; E83.51 Hypocalcemia; I16.0 Hypertensive urgency; E66.9 Obesity, unspecified; E78.5 Hyperlipidemia, unspecified

== ENCOUNTER → 2020-10-05 14:57 | Outpatient (CLI) | payer MEDICARE ==
[2020-09-06 17:51] VITALS: BMI 44.0
[~2020-10-05 14:57] MED LIST changes: +CALCIUM 600 +1 EAC3; +CATAPRES TTS-3 TRANSDERM; +COZAAR100 MG; +HYDRALAZINE HCL50 MG PO; +MAG-OX 400 MG400 MG; +METOPROLOL TART50 MG; +NEURONTIN600 MG; +NORVASC5 MG; +OMEPRAZOLE40 MG; +XANAX1 MG
[2020-10-07 05:11] LABS: HEPATITIS BE ANTIGEN Negative (Negative)
== END | disposition home or self-care (01) ==
LOC: D.LAB 14:57
PROVIDERS: ATTEND Internal Medicine Nephrology
DX: N18.5 Chronic kidney disease, stage 5 (principal); D63.1 Anemia in chronic kidney disease; R80.9 Proteinuria, unspecified; E11.9 Type 2 diabetes mellitus without complications; E55.9 Vitamin D deficiency, unspecified

== ENCOUNTER 2020-10-20 17:09 | Emergency (ER) | payer MEDICARE, MEDICAID ==
[~2020-10-20] VITALS: Ht 162.6 cm; Wt 111.4 kg
[2020-10-20 17:16] VITALS: Ht 162.6 cm; Wt 111.4 kg
[2020-10-20 18:04] LABS: BASOPHILS 0.4 % (0-2); EOSINOPHILS 2.2 % (0-7); HEMATOCRIT 29.3 % (36.0-48.0); HEMOGLOBIN 9.2 g/dL (12-16); IMMATURE GRANULOCYTES 0.2 % (0-5); LYMPHOCYTE ABS# 2.04 10x3/uL (1.18-3.74); LYMPHOCYTES 19.9 % (15-50); MCH 27.5 pg (26.0-34.0); MCHC 31.4 g/dL (31.0-37.0); MCV 87.7 fL (80.0-100.0); MEAN PLATELET VOLUME 10.2 fL (7.4-10.4); MONOCYTES 6.6 % (2-11); NEUTROPHIL ABS# 7.24 10x3/uL (1.56-6.13); NEUTROPHILS 70.7 % (40-80); PLATELET COUNT 377 10x3/uL (130-400); RBC 3.34 10x6/uL (4.00-5.40); WBC 10.3 10x3/uL (4.8-10.8)
[2020-10-20 18:04] LABS: BILIRUBIN NEGATIVE (NEGATIVE); KETONE NEGATIVE (NEGATIVE); NITRITE NEGATIVE (NEGATIVE); UROBILINOGEN NORMAL mg/dL (< 2)
[2020-10-20 18:06] LABS: WHITE CELLS - URINE 0-5 HPF (0-4)
[2020-10-20 18:07] LABS: BACTERIA FEW HPF (NONE SEEN)
[2020-10-20 18:21] LABS: ALBUMIN 3.2 g/dL (3.4-5.0); ANION GAP 17.3 mmol/L (8-16); BILIRUBIN - TOTAL 0.23 mg/dL (0.2-1.3); CARBON DIOXIDE 23.2 mmol/L (21.0-32.0); CREATININE - SERUM 6.5 mg/dL (0.6-1.3); POTASSIUM - SERUM 4.5 mmol/L (3.5-5.1); PROTEIN - SERUM 7.6 g/dL (6.4-8.2)
[2020-10-20 18:22] LABS: CALCIUM 6.6 mg/dL (8.5-10.1)
[2020-10-20] MEDS ORDERED: MACROBID100 MG PO (18:29)
[2020-10-20] MEDS ORDERED: OS-CAL500 MG PO (18:32)
[2020-10-20 20:50] VITALS: BP 141/86
== END 2020-10-20 20:50 | disposition home or self-care (01) ==
LOC: D.ER 17:09
PROVIDERS: Emergency Medicine
DX: N39.0 Urinary tract infection, site not specified (principal); R53.1 Weakness; I12.9 Hypertensive chronic kidney disease with stage 1 through stage 4 chronic kidney disease, or unspecified chronic kidney disease; E83.51 Hypocalcemia; N18.9 Chronic kidney disease, unspecified; E11.22 Type 2 diabetes mellitus with diabetic chronic kidney disease; E11.40 Type 2 diabetes mellitus with diabetic neuropathy, unspecified; K21.9 Gastro-esophageal reflux disease without esophagitis; E78.5 Hyperlipidemia, unspecified; Z79.4 Long term (current) use of insulin

== ENCOUNTER 2020-10-21 16:19 | Inpatient (IN) | payer MEDICARE, MEDICAID ==
[~2020-10-21] VITALS: Ht 162.6 cm; Wt 111.1 kg
--- NOTE | ~2020-10-21 | OP ---
PATIENT NAME: SUSY HANNON MEDICAL RECORD: [id number] :[birth year] LOCATION:D.M2 D.2110 ADMISSION DATE:10/21/20 SURGEON: ZACHARIAH MAURO MD DATE OF OPERATION: 10/24/2020 PREOPERATIVE DIAGNOSES: 1. End-stage renal disease. 2. Hypertension. 3. Diabetes mellitus. 4. Bipolar disorder. 5. Obesity. POSTOPERATIVE DIAGNOSES: 1. End-stage renal disease. 2. Hypertension. 3. Diabetes mellitus. 4. Bipolar disorder. 5. Obesity. PROCEDURES: 1. Laparoscopic lysis of adhesions. 2. Laparoscopic peritoneal dialysis catheter placement. SURGEON: Zachariah Mauro MD REPORT OF PROCEDURE: The patient's abdomen was prepped and draped in sterile fashion. A Veress needle was inserted in the left subcostal region and the abdomen was insufflated. A 5-mm Visiport trocar was inserted in the left lateral abdomen. I could see the Veress needle and there was no sign of any injury to bowel or surrounding structures. A 5-mm trocar was then placed in the midline just above the umbilicus and another was placed in the right upper quadrant. The patient had some adhesions of omentum to the anterior abdominal wall and these were taken down with sharp dissection. As we approached the patient's bladder, it was noted to be distended with urine and there were lots of adhesions present of the omentum to the dome of the bladder. We took down these adhesions using sharp dissection. The omentum was eventually freed up completely from the bladder. The patient did have some scant adhesions down deep in the pelvis, but the remainder of the pelvis appeared to be fairly open and patent. I could see the anterior aspect of the superior rectum and it was free and mobile. A 5-mm trocar was then inserted just below the level of the umbilicus on the right side and this was tunneled into the midline. A grasper was advanced through this trocar and we were able to grasp the pigtail PD catheter and pull it through the skin and subcutaneous tissue into the abdominal cavity. It was pulled into place until the 2 cuffs were in good position at the muscle and the subcutaneous tissues. The pigtail was then placed deep in the pelvis just to the right of midline. This flushed easily with heparinized saline. At the conclusion of this, there was no sign of any active bleeding. We sutured the catheter into place with a 3-0 nylon. The trocars and insufflation were then removed. The skin incisions were infused with a total of 10 mL of 0.25% Marcaine with epinephrine and then closed with subcutaneous 5-0 Monocryl. COMPLICATIONS: None. CONDITION: Stable. OPERATIVE REPORT [id number] SUSY HANNON ANESTHESIA: General endotracheal and local. BLOOD LOSS: 30 mL. TRANSINT:[id number] Voice Confirmation ID: [id number] DOCUMENT ID: [id number] ZACHARIAH MAURO MD CC: ROSEMARIE ZAYAS MD [id number] DICTATION DATE: 10/24/20914 AIRPORT ATTENDANT: 10/24/20 190 ADM IN [facility] [address] [id number]
[~2020-10-21 16:19] MED LIST changes: -CALCIUM 600 +1 EAC3; +CALCIUM 600 +1 EAC3 PO; -MAG-OX 400 MG400 MG; +MAG-OX 400 MG400 MG PO; -METOPROLOL TART50 MG; +METOPROLOL TART50 MG PO; -NEURONTIN600 MG; -NORVASC5 MG; +NORVASC5 MG PO; -OMEPRAZOLE40 MG; +OMEPRAZOLE40 MG PO; +OS-CAL500 MG PO; -XANAX1 MG; +XANAX1 MG PO
--- NOTE | 2020-10-21 19:30 | NUR ---
PHONE CALL TO PATIENT AT HER HOME RESIDENCE. ASKED HER IF SHE INTENDED TO COME BACK TO HOSPITAL TO BE DIRECT ADMITTED PER THE ORDERS THAT HAVE BEEN GIVEN. SUSY STATES SHE THOUGHT ABOUT IT AND WILL BE COMING BACK TO BE ADMITTED.
--- NOTE | 2020-10-21 20:26 | NUR ---
PT HAS ARRIVED AND CHECKED IN THROUGH ADMISSIONS. NOW UP ON FLOOR IN ROOM 2110. ADMISSION ASSESSMENT AND HISTORY INITIATED.
[2020-10-21 21:31] VITALS: BP 165/88
[2020-10-21 22:18] LABS: BASOPHILS 0.2 % (0-2); EOSINOPHILS 2.8 % (0-7); HEMATOCRIT 29.1 % (36.0-48.0); IMMATURE GRANULOCYTES 0.2 % (0-5); LYMPHOCYTES 23.3 % (15-50); MCH 27.4 pg (26.0-34.0); MCHC 30.9 g/dL (31.0-37.0); MCV 88.7 fL (80.0-100.0); MEAN PLATELET VOLUME 9.7 fL (7.4-10.4); MONOCYTES 8.3 % (2-11); NEUTROPHIL ABS# 5.32 10x3/uL (1.56-6.13); NEUTROPHILS 65.2 % (40-80); PLATELET COUNT 354 10x3/uL (130-400); RBC 3.28 10x6/uL (4.00-5.40); WBC 8.2 10x3/uL (4.8-10.8)
[2020-10-21 22:29] LABS: ANION GAP 16.2 mmol/L (8-16); CALCIUM 7.1 mg/dL (8.5-10.1); CREATININE - SERUM 6.2 mg/dL (0.6-1.3); PHOSPHOROUS 5.2 mg/dL (2.5-4.9)
[2020-10-21 22:35] LABS: POTASSIUM - SERUM 5.2 mmol/L (3.5-5.1)
--- NOTE | 2020-10-21 23:02 | NUR ---
SITED 20G TO RFA X 1 ATTEMPT. PT BECAME ANXIOUS/TEARFUL WHEN PLAN OF CARE DISCUSSED. FEARFUL OF HAVING A TEMPORARY DIALYSIS ACCESS PLACED. DECIDING SHE SHOULD LEAVE AND GO HOME DUE TO HER ANXIETY. ATTEMPTED TO CALM PATIENT. WITHIN MINUTES, CALLS FROM HER MOTHER ASKING FOR UNDERSTANDING OF PLAN OF CARE AND THEN HER MENTAL HEALTH COUNSELOR, NIURKA, SHARING PATIENTS ANXIETY/FEAR AND THAT PATIENT CALLED HER SAYING SHE WAS GOING TO LEAVE. DURING ALL OF THIS, DR ZAYAS ON UNIT. RELAYED ALL THE ABOVE TO HIM. HE SPOKE WITH PT AND NEW PLAN OF CARE ESTABLISHED. PT MUCH CALMER. ALLOWED NURSE TO START IV ABT, PROVIDED HER WITH A MEAL AND INSTRUCTED ON NPO AFTER MIDNIGHT.
[2020-10-22] VITALS (7 sets, daily range): BP systolic 139–166; BP diastolic 67–88; BMI 42.1
--- NOTE | 2020-10-22 01:24 | NUR ---
PT NOW RESTING WITH NO DISTRESS. WAS GIVEN IV MORHPHINE AND XANAX PER PLAN OF CARE DISCUSSED WITH DR ZAYAS. NPO FOR AM SURGERY CONSULT. SIGNIFICANT OTHER AT BEDSIDE. CALL LIGHT IN REACH.
[2020-10-22] MEDS ORDERED: SODIUM BICARBO325 MG PO (02:47)
[2020-10-22] MEDS ORDERED: ZOLOFT50 MG PO (02:51)
[2020-10-22] MEDS ORDERED: PROCARDIA XL60 MG PO (02:53)
--- NOTE | 2020-10-22 07:25 | NUR ---
INITIAL ROUNDS- PT SITTING UP IN BED, LISTENING TO MUSIC AND PLAYING ON HER PHONE. PT IS A/O X4, RESP EVEN AND NONLABORED ON RA. RT FA IV SL. PT NPO FOR PD PLACEMENT. PT DENIES ANY NEEDS AT THIS TIME. CALL LIGHT IN REACH. WILL CONTINUE PLAN OF CARE.
[2020-10-22 07:48] LABS: BASOPHILS 0.3 % (0-2); EOSINOPHILS 2.7 % (0-7); HEMATOCRIT 29.7 % (36.0-48.0); IMMATURE GRANULOCYTES 0.2 % (0-5); LYMPHOCYTE ABS# 2.35 10x3/uL (1.18-3.74); LYMPHOCYTES 23.8 % (15-50); MCH 27.1 pg (26.0-34.0); MCHC 30.3 g/dL (31.0-37.0); MCV 89.5 fL (80.0-100.0); MEAN PLATELET VOLUME 10.5 fL (7.4-10.4); MONOCYTES 8.3 % (2-11); NEUTROPHIL ABS# 6.38 10x3/uL (1.56-6.13); NEUTROPHILS 64.7 % (40-80); PLATELET COUNT 390 10x3/uL (130-400); RBC 3.32 10x6/uL (4.00-5.40); RDW 12.2 % (11.5-14.5); WBC 9.9 10x3/uL (4.8-10.8)
[2020-10-22 08:05] LABS: INR 1.06 (0.85-1.17); PROTIME 12.8 SECONDS (11.6-15.0)
[2020-10-22 08:31] LABS: ANION GAP 18.2 mmol/L (8-16); CALCIUM 7.3 mg/dL (8.5-10.1); CARBON DIOXIDE 21.7 mmol/L (21.0-32.0); CREATININE - SERUM 6.1 mg/dL (0.6-1.3); PHOSPHOROUS 5.4 mg/dL (2.5-4.9); POTASSIUM - SERUM 4.9 mmol/L (3.5-5.1)
--- NOTE | 2020-10-22 10:10 | NUR ---
2MG OF MORPHINE GIVEN FOR PAIN LEVEL OF 9/10, ALSO GAVE 4MG OF ZOFRAN PO AND 1MG OF XANAX FOR ANXIETY. GENERAL FARM HAND HERE TO TAKE PT FOR CTA.
[2020-10-22 11:05] LABS: BILIRUBIN NEGATIVE (NEGATIVE); KETONE NEGATIVE (NEGATIVE); NITRITE NEGATIVE (NEGATIVE); UROBILINOGEN NORMAL mg/dL (< 2)
[2020-10-22 11:06] LABS: BACTERIA MODERATE HPF (NONE SEEN); WHITE CELLS - URINE 0-5 HPF (0-4)
[2020-10-22 11:07] LABS: TALC POWDER CRYSTALS 0-5 HPF (NONE SEEN)
--- NOTE | 2020-10-22 14:06 | NUR ---
22 GAUGE IV PLACED TO LEFT FOREARM X 1 STICK. GOOD BLOOD RETURN, EASY FLUSH. TAPED, DATED AND SECURED. PATIENT TOLERATED IV PLACMENT WELL.
--- NOTE | 2020-10-22 20:19 | NUR ---
INITIAL ROUNDS AND ASSESSMENT COMPLETED. PT IN BED, MOTHER AT BEDSIDE. IVF NS @ 75ML/HR INFUSING TO IV IN LFA. FSBS 193. PT ALERT, COOPERATIVE. NONLABORED RESPIRATIONS ON ROOM AIR. CALL LIGHT IN REACH.
--- NOTE | 2020-10-22 21:17 | NUR ---
BEDTIME MEDS GIVEN. FSBS WAS 193, SLIDING SCALE INSULIN ADMINISTERED. IV ABT UP AND INFUSING.
--- NOTE | 2020-10-23 00:06 | NUR ---
PT CALLED FROM ROOM. SHE HAD VOMITTED ABOUT 800ML BROWN LQUID. VERY SHAKY, TREMULOUS AND TEARFUL. FRIEND, JUMA, AT BEDSIDE. CARE PROVIDED. NEW LINENS. CHANGED CLOTHES, BRUSHED TEETH. CALL TO KARINA RUDD APN AND REPORTED N/V, NEW ORDERS FOR PHENERGAN IM OBTAINED.
[2020-10-23 01:23] VITALS: BP 177/78
--- NOTE | 2020-10-23 01:42 | NUR ---
PT WAS GIVEN IM PHENERGAN AND IS NOW RESTING.
[2020-10-23 05:07] VITALS: BP 166/72
[2020-10-23 06:14] LABS: BASOPHILS 0.1 % (0-2); EOSINOPHILS 0.2 % (0-7); HEMATOCRIT 27.6 % (36.0-48.0); HEMOGLOBIN 8.5 g/dL (12-16); IMMATURE GRANULOCYTES 0.3 % (0-5); LYMPHOCYTE ABS# 1.46 10x3/uL (1.18-3.74); LYMPHOCYTES 13.4 % (15-50); MCH 27.1 pg (26.0-34.0); MCHC 30.8 g/dL (31.0-37.0); MCV 87.9 fL (80.0-100.0); MEAN PLATELET VOLUME 10.3 fL (7.4-10.4); MONOCYTES 4.4 % (2-11); NEUTROPHIL ABS# 8.91 10x3/uL (1.56-6.13); NEUTROPHILS 81.6 % (40-80); PLATELET COUNT 374 10x3/uL (130-400); RBC 3.14 10x6/uL (4.00-5.40); WBC 10.9 10x3/uL (4.8-10.8)
[2020-10-23 06:43] LABS: CARBON DIOXIDE 22.5 mmol/L (21.0-32.0); CREATININE - SERUM 5.5 mg/dL (0.6-1.3); PHOSPHOROUS 5.7 mg/dL (2.5-4.9)
[2020-10-23 06:53] LABS: ANION GAP 17.9 mmol/L (8-16)
[2020-10-23 06:55] LABS: POTASSIUM - SERUM 6.4 mmol/L (3.5-5.1)
[2020-10-23 06:56] LABS: CALCIUM 6.5 mg/dL (8.5-10.1)
--- NOTE | 2020-10-23 07:43 | NUR ---
INITIAL ROUNDS PT RESTING COMFFORTABLY WITH EYES CLOSED, EASILY AROUSES TO VOICE. PT A/O X4, RESP EVEN AND NONLABORED ON RA. LT FA INFUSING NS AT 75CC/HR. PT DENIES ANY NEEDS AT THIS TIME. CALL LIGHT IN REACH, WILL CONTINUE PLAN OF CARE.
--- NOTE | 2020-10-23 07:47 | NUR ---
TRIED CALLING CRITICAL K TO KARINA RUDD APRN. CALL WENT TO STRAIGHT TO VOICEMAIL AND WAS NOT ABLE TO LEAVE A VOICEMAIL. WILL TRY AGAIN.
--- NOTE | 2020-10-23 07:58 | NUR ---
NOTIFIED KARINA RUDD APRN OF CRITICAL K OF 6.4.
[2020-10-23 08:07] VITALS: BP 150/69
--- NOTE | 2020-10-23 11:18 | NUR ---
BLOOD SUGAR OF 235, 6UNITS GIVEN PER S/S. ALSO GAVE PO PHENERGAN AT THIS TIME. ALL NEEDS MET, CALL LIGHT IN REACH.
[2020-10-23 11:22] VITALS: BP 146/68
[2020-10-23 15:18] VITALS: BP 177/84
--- NOTE | 2020-10-23 16:05 | NUR ---
BLOOD SUGAR OF 139, NO COVERAGE NEEDED PER S/S. ALL NEEDS MET, CALL LIGHT IN REACH.
[2020-10-23 20:00] VITALS: BP 188/91
[2020-10-24] VITALS (8 sets, daily range): BP systolic 136–179; BP diastolic 0–86
--- NOTE | 2020-10-24 07:40 | NUR ---
PT TAKEN TO SURGERY AT THIS TIME.
[2020-10-24 07:49] LABS: BASOPHILS 0.2 % (0-2); EOSINOPHILS 1.3 % (0-7); HEMOGLOBIN 8.1 g/dL (12-16); IMMATURE GRANULOCYTES 0.2 % (0-5); LYMPHOCYTE ABS# 1.69 10x3/uL (1.18-3.74); LYMPHOCYTES 17.7 % (15-50); MCH 27.6 pg (26.0-34.0); MCHC 31.2 g/dL (31.0-37.0); MCV 88.7 fL (80.0-100.0); MEAN PLATELET VOLUME 9.4 fL (7.4-10.4); MONOCYTES 9.6 % (2-11); NEUTROPHIL ABS# 6.77 10x3/uL (1.56-6.13); PLATELET COUNT 318 10x3/uL (130-400); RBC 2.93 10x6/uL (4.00-5.40); RDW 12.2 % (11.5-14.5); WBC 9.5 10x3/uL (4.8-10.8)
[2020-10-24 08:01] LABS: ANION GAP 15.4 mmol/L (8-16); CREATININE - SERUM 5.3 mg/dL (0.6-1.3); PHOSPHOROUS 5.2 mg/dL (2.5-4.9); POTASSIUM - SERUM 4.4 mmol/L (3.5-5.1)
--- NOTE | 2020-10-24 09:52 | NUR ---
0947 - DR RUCKER CONSULTED FOR SBP > 200. ORDERS RECEIVED AND IMPLEMENTED.
--- NOTE | 2020-10-24 10:08 | NUR ---
XOPENEX UPDRAFT PER ANESTHESIA
--- NOTE | 2020-10-24 10:30 | NUR ---
PT ARRIVED FROM SURGERY AT THIS TIME. VS OBTAINED AND STABLE. AM MEDS GIVEN , FAMILY AT BEDSIDE. RR EVEN NON LABORED. PT AWAKE AND ALERT, NO NEEDS VOICED. CLWR.
--- NOTE | 2020-10-24 13:13 | NUR ---
PT AMBULATED TO AND FROM BATHROOM WITH STANDBY ASSIST BY SYSTEMS TECHNICIAN. PT TOLERATED WELL. LEAKAGE FROM SITE TO LEFT ABDOMEN NOTED. NO NEEDS VOICED. CLWR.
--- NOTE | 2020-10-24 20:05 | NUR ---
REPORT RECEIVED. PT A&O, FAMILY AT BEDSIDE. NO S/S OF DISTRESS OBSERVED. RR EVEN AND UNLABORED. BED LOCKED AND LOWERED, CL IN REACH. ASSESSMENT COMPLETED AT THIS TIME. WILL CONT POC.
--- NOTE | 2020-10-24 21:20 | NUR ---
PTS IV INFILTRATED. PT DOES NOT WANT ANOTHER IV. SPOKE WITH KAYLEE FLORES APN WHO STATED THAT IT WAS OK FOR PT TO NOT HAVE IV ACCESS. ALL MEDS CHANGED TO PO. ROCEPHIN CHANGED TO IM. FLUIDS D/C'ED. ALSO, SPOKE WITH REMIGIO PAGE ABOUT PTS INCISION SITE BLEEDING. REINFORCED WITH BULKY DRESSING. NO NEW ORDERS RECEIVED. WILL CONT POC.
--- NOTE | 2020-10-24 22:50 | NUR ---
PTS INFILTRATED IV REMOVED FROM L FOREARM. CATHETER INTACT, BANDAGE IN PLACE.
[2020-10-25] VITALS (7 sets, daily range): BP systolic 126–174; BP diastolic 46–87; Ht 162.6 cm; Wt 111.1 kg
[2020-10-25 06:02] LABS: BASOPHILS 0.2 % (0-2); HEMATOCRIT 24.1 % (36.0-48.0); IMMATURE GRANULOCYTES 0.3 % (0-5); LYMPHOCYTE ABS# 1.97 10x3/uL (1.18-3.74); LYMPHOCYTES 20.4 % (15-50); MCH 27.2 pg (26.0-34.0); MCHC 30.7 g/dL (31.0-37.0); MCV 88.6 fL (80.0-100.0); MEAN PLATELET VOLUME 9.9 fL (7.4-10.4); MONOCYTES 11.4 % (2-11); NEUTROPHIL ABS# 6.43 10x3/uL (1.56-6.13); NEUTROPHILS 66.7 % (40-80); PLATELET COUNT 327 10x3/uL (130-400); RBC 2.72 10x6/uL (4.00-5.40); RDW 12.4 % (11.5-14.5); WBC 9.7 10x3/uL (4.8-10.8)
[2020-10-25 06:13] LABS: HEMOGLOBIN 7.4 g/dL (12-16)
--- NOTE | 2020-10-25 06:25 | NUR ---
PTS HGB 7.4. REPORTED TO DR. KING. NO NEW ORDERS RECEIVED.
[2020-10-25 06:26] LABS: ANION GAP 16.5 mmol/L (8-16); CARBON DIOXIDE 21.7 mmol/L (21.0-32.0); PHOSPHOROUS 4.8 mg/dL (2.5-4.9); POTASSIUM - SERUM 4.2 mmol/L (3.5-5.1)
[2020-10-25 06:28] LABS: CALCIUM 6.9 mg/dL (8.5-10.1)
--- NOTE | 2020-10-25 09:20 | NUR ---
ATTEMPTED TO START IV ON PT X1, CHARGE NURSE X2, NO IV HAS BEEN ABLE TO BE OBTAINED. PT REFUSES AT THIS TIME POINT TO BE STUCK ANYMORE.
--- NOTE | 2020-10-25 09:27 | NUR ---
SPOKE WITH BRI MAYER AT THIS TIME REGARDING MULTIPLE FAILED ATTEMPTS FOR AN IV AND PT NOW REFUSING TO BE STUCK. NEW ORDER FOR ORAL IRON RECEIVED AND PLACED.
[2020-10-25 10:12] LABS: HEPATITIS C ANTIBODY <0.1 S/CO RAT (0.0-0.9)
[2020-10-25 18:41] LABS: SARS-CoV-2 ANTIGEN NEGATIVE- SARS-COV-2 (NEGATIVE)
--- NOTE | 2020-10-25 19:56 | NUR ---
REPORT RECEIVED. PT A&O, UP IN BED ON THE PHONE. NO S/S OF DISTRESS OBSERVED. RR EVEN & UNLABORED ON RA. BED LOCKED AND LOWERED, CL IN REACH. ASSESSMENT COMPLETE. WILL CONT POC.
[2020-10-26 01:48] VITALS: BP 185/87
[2020-10-26 05:50] VITALS: BP 178/94
[2020-10-26] MEDS ORDERED: PHENERGAN IV (05:51)
[2020-10-26] MEDS ORDERED: EFFEXOR37.5 MG PO (05:52)
[2020-10-26] MEDS ORDERED: VITAMIN D21250 MC1 PO (05:54)
[2020-10-26] MEDS ORDERED: VITAMIN D325 MC1 PO (05:54)
[2020-10-26 06:14] LABS: BASOPHILS 0.2 % (0-2); EOSINOPHILS 1.7 % (0-7); HEMATOCRIT 23.5 % (36.0-48.0); IMMATURE GRANULOCYTES 0.2 % (0-5); LYMPHOCYTE ABS# 1.53 10x3/uL (1.18-3.74); LYMPHOCYTES 14.3 % (15-50); MCH 26.9 pg (26.0-34.0); MCHC 30.2 g/dL (31.0-37.0); MONOCYTES 10.1 % (2-11); NEUTROPHIL ABS# 7.88 10x3/uL (1.56-6.13); NEUTROPHILS 73.5 % (40-80); PLATELET COUNT 334 10x3/uL (130-400); RBC 2.64 10x6/uL (4.00-5.40); RDW 12.1 % (11.5-14.5); WBC 10.7 10x3/uL (4.8-10.8)
--- NOTE | 2020-10-26 06:32 | NUR ---
REPORT RECEIVED. PT A&O, UP IN BED WITH DAUGHTER, RIKKI, AT BEDSIDE. NO S/S OF DISTRESS OBSERVED. RR EVEN & UNLABORED ON RA. PT INFUSING CARDIZEM DRIP AT 10CC/HR. BED LOCKED AND LOWERED, CL IN REACH. WILL CONT POC.
[2020-10-26 06:33] LABS: ANION GAP 17.3 mmol/L (8-16); CALCIUM 7.4 mg/dL (8.5-10.1); CREATININE - SERUM 4.8 mg/dL (0.6-1.3); PHOSPHOROUS 5.4 mg/dL (2.5-4.9); POTASSIUM - SERUM 4.3 mmol/L (3.5-5.1)
[2020-10-26 06:38] LABS: HEMOGLOBIN 7.1 g/dL (12-16)
[2020-10-26 08:09] VITALS: BP 172/85
--- NOTE | 2020-10-26 08:38 | NUR ---
PT LYING IN BED, AM MEDS TO BE GIVEN BY STUDENT NURSE AND INSTRUCTOR. PT AWARE AND AGREES IT IS OKAY. RR EVEN NON LABORED, NO NEEDS VOICED. CLWR.
--- NOTE | 2020-10-26 09:36 | MORECARE ---
CASE MANAGEMENT DISCHARGE SUMMARY PATIENT: SUSY HANNON UNIT: [id number] ADM DATE: 10/21/20 AGE: 40 : 78 SEX: F ROOM/BED: D.[facility] AUTHOR: CODY SWANSON PHYSICIAN: REFERRING PHYSICIAN: ROSEMARIE ZAYAS MD DATE OF SERVICE: 10/26/20 Case Management Discharge Planning Summary DCP REVIEW SUMMARY ANTICIPATED D/C DATE: EXPECTED LOS : CASE STATUS: DCP Initiated INITIAL REVIEW: 10/26/2020 INITIAL REVIEWER: Dahiana Woods FINAL DISCHARGE DISPOSITION: : FINAL REVIEWER: FINAL REVIEW DATE: DCP Focus Questions & Answers QUESTION: ANSWER : PATIENT: SUSY HANNON ENCOUNTER: [id number] MEDICAL RECORD#: [id number] ADMISSION DATE: 10/21/2020 DISCHARGE DATE: ATTENDING MD: ROSEMARIE GALLOWAY : AGE: 40 MARITAL STATUS: S DC PLAN ID: [id number] FACILITY: [facility] PRINTED ON: 10/26/20 9:36 CT All edits/amendments must be made on the electronic document DICTATION DATE: 10/26/20935 MANAGER OF CASE: DM 10/26/20935 RPT#: [id number] DC DATE: STATUS: ADM IN [facility] [address] [place] [address] END OF REPORT
--- NOTE | 2020-10-26 09:48 | MORECARE ---
CASE MANAGEMENT DISCHARGE SUMMARY PATIENT: SUSY HANNON UNIT: [id number] ADM DATE: 10/21/20 AGE: 40 : 78 SEX: F ROOM/BED: D.2111 AUTHOR: CODY SWANSON PHYSICIAN: REFERRING PHYSICIAN: ROSEMARIE ZAYAS MD DATE OF SERVICE: 10/26/20 Case Management Discharge Planning Summary DCP REVIEW SUMMARY ANTICIPATED D/C DATE: EXPECTED LOS : CASE STATUS: DCP Initiated INITIAL REVIEW: 10/26/2020 INITIAL REVIEWER: Dahiana Woods FINAL DISCHARGE DISPOSITION: : FINAL REVIEWER: FINAL REVIEW DATE: DCP Focus Questions & Answers DCP Evaluation QUESTION: ANSWER Family / Caregiver's ability to cope with chronic illness: : a. Adequate (ability to meet patient's medical needs, ensures patient attends medical appts.) Patient's current cognitive status: : *Oriented to person, place, situation, time and present Patient's ability to cope with chronic illness : d. No chronic illness Does the patient have the ability to pay for or attain post discharge needs / services? : Yes Functional screen assessment: : Basic needs can adequately be met by self Family / Caregiver's ability to cope with chronic illness: : a. Adequate (ability to meet patient's medical needs, ensures patient attends medical appts.) Physical Status: : Independent with ADL's Equipment needed for post hospitalization: : Shower Chair Is there a likelihood that the patient will require additional services to return to the preadmission environment? : No Other Equipment comments: : Ordered shower chair from [facility] Results of this evaluation have been discussed with: : Patient Baseline cognitive status: : *Oriented to person, place, situation, time and present Physical environment modification needed / anticipated for discharge: : No Medication Management: : Patient states can afford medications Would patient like to participate in any Care Coordination programs (if applicable): : Not applicable Equipment in use: : None Mental health screen: : No mental health history DCP Re-evaluation QUESTION: ANSWER Would patient like to participate in any Care Coordination programs (if applicable): : Not applicable PATIENT: SUSY HANNON ENCOUNTER: [id number] MEDICAL RECORD#: [id number] ADMISSION DATE: 10/21/2020 DISCHARGE DATE: ATTENDING MD: ROSEMARIE GALLOWAY : AGE: 40 MARITAL STATUS: S DC PLAN ID: [id number] FACILITY: [facility] PRINTED ON: 10/26/20 9:48 CT All edits/amendments must be made on the electronic document DICTATION DATE: 10/26/20947 CERTIFIED LEGAL SECRETARY SPECIALIST: MOSHE 10/26/20947 RPT#: [id number] DC DATE: STATUS: ADM IN [facility] [address] [place] [address] END OF REPORT
--- NOTE | 2020-10-26 09:59 | MORECARE ---
CASE MANAGEMENT DISCHARGE SUMMARY PATIENT: SUSY HANNON UNIT: [id number] ADM DATE: 10/21/20 AGE: 40 : 78 SEX: F ROOM/BED: D.3097 AUTHOR: SKY,DOC PHYSICIAN: REFERRING PHYSICIAN: ROSEMARIE ZAYAS MD DATE OF SERVICE: 10/26/20 Case Management Discharge Planning Summary COMMENTS ENTERED DATE: 10/26/20 9:37 CT COMMENT TYPE: Discharge Planning REVIEWER: Dahiana Woods DC PLAN: Home ANTICIPATED DC NEEDS: Shower chair ordered from [facility] CM met with patient to complete initial dc planning assessment. CM educated patient on the CM role and verbal consent given by patient to complete assessment. CM verified patient's address, phone number, and emergency contact phone numbers. Patient lives at home with her 18 year old daughter, Perez Hannon. At discharge patient plans to return and feels this is a safe discharge. CM discussed availability of home health, rehab services, and medical equipment. Patient states the only thing she needs is a shower chair and CHERI for [facility] received. I called [facility] and faxed order. She tells me her PCP is Iram Soto and she uses [facility] on [address] and [facility]. She states Transportation provider at discharge will be her son. She states she has an appointment for PD cath check on Saturday at 11:00. I called Fabi (OP dialysis coordinator) and she states we do not need to hold her waiting on PD training. No further needs at this time. CM will continue to follow and will assist as needed with dc plans/needs. DCP REVIEW SUMMARY ANTICIPATED D/C DATE: EXPECTED LOS : CASE STATUS: DCP Initiated INITIAL REVIEW: 10/26/2020 INITIAL REVIEWER: Dahiana Woods FINAL DISCHARGE DISPOSITION: : FINAL REVIEWER: FINAL REVIEW DATE: DCP Focus Questions & Answers DCP Evaluation QUESTION: ANSWER Family / Caregiver's ability to cope with chronic illness: : a. Adequate (ability to meet patient's medical needs, ensures patient attends medical appts.) Patient's current cognitive status: : *Oriented to person, place, situation, time and present Patient's ability to cope with chronic illness : d. No chronic illness Does the patient have the ability to pay for or attain post discharge needs / services? : Yes Functional screen assessment: : Basic needs can adequately be met by self Family / Caregiver's ability to cope with chronic illness: : a. Adequate (ability to meet patient's medical needs, ensures patient attends medical appts.) Physical Status: : Independent with ADL's Equipment needed for post hospitalization: : Shower Chair Is there a likelihood that the patient will require additional services to return to the preadmission environment? : No Other Equipment comments: : Ordered shower chair from [facility] Results of this evaluation have been discussed with: : Patient Baseline cognitive status: : *Oriented to person, place, situation, time and present Physical environment modification needed / anticipated for discharge: : No Medication Management: : Patient states can afford medications Would patient like to participate in any Care Coordination programs (if applicable): : Not applicable Equipment in use: : None Mental health screen: : No mental health history DCP Re-evaluation QUESTION: ANSWER Would patient like to participate in any Care Coordination programs (if applicable): : Not applicable PATIENT: SUSY HANNON ENCOUNTER: [id number] MEDICAL RECORD#: [id number] ADMISSION DATE: 10/21/2020 DISCHARGE DATE: ATTENDING MD: ROSEMARIE GALLOWAY : AGE: 40 MARITAL STATUS: S DC PLAN ID: [id number] FACILITY: [facility] PRINTED ON: 10/26/20 9:59 CT All edits/amendments must be made on the electronic document DICTATION DATE: 10/26/20958 PIPE FITTER APPRENTICE: MOSHE 10/26/2059 RPT#: [id number] DC DATE: STATUS: ADM IN [facility] [address] [place] [address] END OF REPORT
--- NOTE | 2020-10-26 10:22 | NUR ---
PT TO BE D/C HOME TODAY, PT AWARE AND AGREES TO PLAN OF CARE. PT STABLE, VS STABLE. RR EVEN NON LABORED. PD CATH SITE CLEAN/DRY/INTACT. INSTRUCTION GIVEN TO PT REGARDING KEEPING AREA CLEAN, AND HAVING CATH TAPED SECURED. PT STATES UNDERSTANDING. NO QUESTIONS VOICED. CLWR.
--- NOTE | 2020-10-26 10:47 | NUR ---
D/C INSTRUCTIONS GIVEN AT THIS TIME INCLUDING SITE CARE, MEDICATIONS, AND FOLLOW UP APPOINTMENT. PT STATES UNDERSTANDING, DENIES ANY QUESTIONS. PT CALLED MOTHER TO PICK HER UP. ALL BELONGINGS PACKED. CLWR
--- NOTE | 2020-10-26 11:00 | NUR ---
PT WHEELED TO PRIVATE VEHICLE BY NURSE AND DIRECTOR OF CASEWORK DEPARTMENT, ALL BELONGINGS WITH PT TIME OF D/C. NO DISTRESS NOTED.
--- NOTE | 2020-10-26 15:03 | CN ---
PATIENT NAME:SUSY HANNON MEDICAL RECORD: [id number] : 76 LOCATION:D. D.2110 ADMIT DATE: 10/21/20 ACCOUNT: [id number] CONSULTING PHYSICIAN: SAL BARAJAS MD REFERRING PHYSICIAN: ROSEMARIE ZAYAS MD DATE OF CONSULTATION: 10/25/2020 PSYCHIATRIC EVALUATION IDENTIFYING DATA: The patient is 40 years old and she is admitted to the hospital on a voluntary basis. CHIEF COMPLAINT: Hyperglycemia. HISTORY OF PRESENT ILLNESS: The patient is a diabetic and has had longstanding problems with this condition. She has ongoing problems with her diabetes and including gastroparesis and neuropathy. She endorses numerous neurovegetative depressive symptoms and relates all of them to her health problem. She states that she has no thoughts of harming herself or others would never do such a thing, but is just simply frustrated and somewhat overwhelmed by life circumstances. ASSESSMENT: Major depression. PLAN: The patient will be treated with antidepressant medication. Her long-term prognosis is guarded. I am going to recommend follow up with the [facility]. TRANSINT:[id number] Voice Confirmation ID: [id number] DOCUMENT ID: [id number] SAL BARAJAS MD at 1503 CC: [id number] DICTATION DATE: 10/25/20 155 FABRIC PATTERN GRADER: 10/25/201930 DIS IN 10/26/20 [facility] [address] [place] [address]
== END 2020-10-26 11:00 | disposition home or self-care (01) | DRG 674 ==
LOC: D.M2 16:19
PROVIDERS: Surgery; ADMIT Internal Medicine Nephrology; ATTEND Internal Medicine Nephrology
PROC: 0WHG43Z Insertion of Infusion Device into Peritoneal Cavity, Percutaneous Endoscopic Approach (ICD-10-PCS; 2020-10-24)
PROC: 0DNU4ZZ Release Omentum, Percutaneous Endoscopic Approach (ICD-10-PCS; principal; 2020-10-24 08:00)
DX: E11.22 Type 2 diabetes mellitus with diabetic chronic kidney disease (principal); F31.89 Other bipolar disorder; I12.0 Hypertensive chronic kidney disease with stage 5 chronic kidney disease or end stage renal disease; Z68.41 Body mass index [BMI] 40.0-44.9, adult; N18.6 End stage renal disease; E11.21 Type 2 diabetes mellitus with diabetic nephropathy; D63.1 Anemia in chronic kidney disease; E83.51 Hypocalcemia; Z79.84 Long term (current) use of oral hypoglycemic drugs; E11.40 Type 2 diabetes mellitus with diabetic neuropathy, unspecified; E11.65 Type 2 diabetes mellitus with hyperglycemia; E66.9 Obesity, unspecified